=== PATIENT | female | born 1965 | race Caucasian/White ===

== ENCOUNTER → 2022-09-04 12:47 | Outpatient (BNVA) | payer MEDICARE, MEDICAID, SELFPAY | PROVIDERS: PCP Internal Medicine; Visit Provider Physician Assistant | DX: E66.01 Morbid (severe) obesity due to excess calories (principal); E78.5 Hyperlipidemia, unspecified; I10 Essential (primary) hypertension; G40.909 Epilepsy, unspecified, not intractable, without status epilepticus; F41.9 Anxiety disorder, unspecified; Z68.43 Body mass index [BMI] 50.0-59.9, adult; Z98.890 Other specified postprocedural states; Z79.01 Long term (current) use of anticoagulants; Z86.69 Personal history of other diseases of the nervous system and sense organs | CPT/HCPCS: 99202 ==

== ENCOUNTER → 2022-09-26 13:28 | Outpatient (BNVA) | payer MEDICARE, MEDICAID, SELFPAY | PROVIDERS: PCP Internal Medicine; Visit Provider Dietitian, Registered | DX: E66.01 Morbid (severe) obesity due to excess calories (principal); Z68.43 Body mass index [BMI] 50.0-59.9, adult | CPT/HCPCS: 97802 ==

== ENCOUNTER 2022-10-02 11:28 | Outpatient (REF) | payer MEDICARE, MEDICAID, SELFPAY ==
--- NOTE | ~2022-10-02 | XR_ITS ---
EXAMINATION: XR CHEST 2 VIEWS CLINICAL INFORMATION: Morbid obesity. COMPARISON: Chest radiographs dated 07/27/2013. TECHNIQUE: Frontal and lateral views of the chest were obtained. FINDINGS: The heart, great vessels, pulmonary vasculature and mediastinum are normal. The lungs show no focal infiltrate, effusion or pneumothorax. There is no acute osseous abnormality. There is multi-level thoracic spondylosis. XR/XR chest 2V IMPRESSION: No active cardiopulmonary disease.
--- NOTE | 2022-10-02 12:05 | ECG_ITS ---
Test Reason : E66.01 Morbid Obesity Blood Pressure : / mmHG Vent. Rate : 085 BPM Atrial Rate : 085 BPM P-R Int : 160 ms QRS Dur : 114 ms QT Int : 382 ms P-R-T Axes : 070 -45 079 degrees QTc Int : 454 ms Normal sinus rhythm Left anterior fascicular block Moderate voltage criteria for LVH, may be normal variant ( R in aVL , Brian product ) Abnormal ECG When compared with ECG of 25-OCT-2010 11:02, Left anterior fascicular block is now Present Referred By: Lyn Patel Electronically Signed By:Luciano Caicedo
[2022-10-02 12:35] LABS: Basophils Percent Auto 0.4 % (0-2); Eosinophils Absolute Auto 0.2 X10*3/uL (0.0-0.4); Eosinophils Percent Auto 1.8 % (0-4); Hematocrit 39.5 % (37.0-47.0); Imm Gran Abs Auto 0.05 X10*3/uL (0.00-0.03); Imm Gran Pct Auto 0.6 % (0.0-0.4); Lymphocytes Absolute Auto 1.8 X10*3/uL (1.2-4.9); Lymphocytes Percent Auto 19.9 % (20-40); MANUAL DIFF FLAG NO; Mean Corpuscular HGB Conc 30.4 g/dl (31.0-35.0); Mean Corpuscular Hemoglobin 24.8 pg (27.0-33.0); Mean Corpuscular Volume 81.8 fL (80.0-98.0); Mean Platelet Volume 9.1 fL (9.4-12.3); Monocytes Absolute Auto 0.7 X10*3/uL (0.1-1.2); Monocytes Percent Auto 8.2 % (2-11); Neutrophils Absolute Auto 6.2 x10*3/uL (2.0-8.3); Neutrophils Percent Auto 69.1 % (45-73); Platelet Count 347 X10*3/uL (160-400); Red Blood Count 4.83 X10*6/uL (4.20-5.50); Red Cell Distribution Width 18.1 % (11.0-16.0)
[2022-10-02 13:53] LABS: Estimated Average Glucose 151 mg/dL; Hemoglobin A1c % 6.9 %
[2022-10-02 18:08] LABS: Alanine Aminotransferase 13 U/L (0-31); Albumin Level 4.2 g/dL (3.5-5.0); Alkaline Phosphatase 132 U/L (39-117); Anion Gap 15 (12-20); Aspartate Amino Transferase 17 U/L (5-31); Bilirubin Total 0.3 mg/dL (0.0-1.0); Blood Urea Nitrogen 20 mg/dL (9-16); Calcium 9.2 mg/dL (8.4-10.2); Carbon Dioxide 17 mmol/L (22-29); Chloride 109 mmol/L (96-108); Cholesterol 112 mg/dL; Estimated Glomerular Filt Rate 47; Glucose Random 130 mg/dL (60-115); HDL Cholesterol 38 mg/dL; Iron 41 mcg/dL (30-160); LDL Cholesterol Calculated 53 mg/dl; Percent Iron Saturation 10 % (15-50); Sodium 137 mmol/L (135-145); Total Iron Binding Capacity 405 mcg/dL (228-428); Total Protein 8.5 g/dL (6.5-8.0); Triglycerides 109 mg/dL; Unsaturated Iron Binding 364 ug/dL
[2022-10-02 18:25] LABS: Ferritin 23 ng/mL (10-250); Insulin 55 uU/mL (2-29); TSH reflex Free T4 1.59 uIU/mL (0.32-4.0); Vitamin D 25-OH Total 14.2 ng/mL (>30)
[2022-10-02 18:37] LABS: Folate 10.6 ng/mL (> or = 4.0); Vitamin B12 338 pg/mL (200-900)
[2022-10-03 16:44] LABS: Calcium (PTHI) 9.1 mg/dL (8.6-10.4); PTHI 48 pg/mL (16-77)
[2022-10-06 23:54] LABS: Zinc 69 mcg/dL (60-130)
[2022-10-07 16:03] LABS: Vitamin B1 9 nmol/L (8-30)
[2022-10-09 08:43] LABS: Vitamin A 53 mcg/dL (38-98)
== END 2022-10-02 11:29 | disposition home or self-care (01) ==
LOC: HO.LAB 11:28
PROVIDERS: PCP Internal Medicine; Visit Provider Physician Assistant
DX: Z01.818 Encounter for other preprocedural examination (principal); E66.01 Morbid (severe) obesity due to excess calories; I42.9 Cardiomyopathy, unspecified; Z71.3 Dietary counseling and surveillance; Z68.43 Body mass index [BMI] 50.0-59.9, adult
CPT/HCPCS: 36415; 71046; 80053; 80061; 82306; 82607; 82728; 82746; 83013; 83036; 83525; 83540; 83970; 84425; 84443; 84590; 84630; 85025; 86140; 93005; 99211; 99212

== ENCOUNTER 2022-10-02 18:03 | Outpatient (REF) | payer MEDICARE, MEDICAID, SELFPAY ==
[2022-10-03 09:03] LABS: H Pylori Breath Test Positive (Negative)
== END 2022-10-02 18:04 | disposition home or self-care (01) ==
LOC: HO.LNP 18:03
PROVIDERS: Visit Provider Physician Assistant
DX: Z13.89 Encounter for screening for other disorder (principal)
CPT/HCPCS: 83013

== ENCOUNTER → 2022-10-08 14:15 | Outpatient (BNVA) | payer MEDICARE, MEDICAID, SELFPAY | PROVIDERS: PCP Internal Medicine; Visit Provider Counselor Mental Health | DX: F33.9 Major depressive disorder, recurrent, unspecified (principal); F41.1 Generalized anxiety disorder; F50.81 Binge eating disorder; E66.01 Morbid (severe) obesity due to excess calories | CPT/HCPCS: 90791 ==

== ENCOUNTER → 2022-10-20 13:23 | Outpatient (BNVA) | payer MEDICARE, MEDICAID, SELFPAY | PROVIDERS: PCP Internal Medicine; Visit Provider Dietitian, Registered | DX: E66.01 Morbid (severe) obesity due to excess calories (principal); Z71.3 Dietary counseling and surveillance | CPT/HCPCS: 97803 ==

== ENCOUNTER → 2022-10-23 13:25 | Outpatient (BNVA) | payer MEDICARE, MEDICAID, SELFPAY | PROVIDERS: PCP Internal Medicine; Visit Provider Physician Assistant | DX: E66.01 Morbid (severe) obesity due to excess calories (principal); I42.9 Cardiomyopathy, unspecified; Z68.43 Body mass index [BMI] 50.0-59.9, adult | CPT/HCPCS: 99212 ==

== ENCOUNTER → 2022-11-11 15:33 | Outpatient (BNVA) | payer MEDICARE, MEDICAID, SELFPAY | PROVIDERS: PCP Internal Medicine; Visit Provider Counselor Mental Health | DX: F33.9 Major depressive disorder, recurrent, unspecified (principal); F41.1 Generalized anxiety disorder; F50.81 Binge eating disorder; E66.01 Morbid (severe) obesity due to excess calories; Z90.49 Acquired absence of other specified parts of digestive tract | CPT/HCPCS: 90832 ==

== ENCOUNTER → 2022-11-17 13:15 | Outpatient (BNVA) | payer MEDICARE, MEDICAID, SELFPAY | PROVIDERS: PCP Internal Medicine; Visit Provider Physician Assistant | DX: Z01.818 Encounter for other preprocedural examination (principal); E66.01 Morbid (severe) obesity due to excess calories; R73.09 Other abnormal glucose; A04.8 Other specified bacterial intestinal infections; I44.4 Left anterior fascicular block; I42.9 Cardiomyopathy, unspecified; Z68.43 Body mass index [BMI] 50.0-59.9, adult; Z90.49 Acquired absence of other specified parts of digestive tract; Z94.0 Kidney transplant status | CPT/HCPCS: 83013; 99211; 99212 ==

== ENCOUNTER 2022-11-17 16:02 | Outpatient (REF) | payer MEDICARE, MEDICAID, SELFPAY ==
[2022-11-18 15:32] LABS: H Pylori Breath Test Positive (Negative)
== END 2022-11-17 16:03 | disposition home or self-care (01) ==
LOC: HO.LNP 16:02
PROVIDERS: Visit Provider Physician Assistant
DX: Z13.89 Encounter for screening for other disorder (principal)
CPT/HCPCS: 83013

== ENCOUNTER → 2023-03-12 15:21 | Outpatient (BNVA) | payer MEDICARE, MEDICAID, SELFPAY | PROVIDERS: PCP Internal Medicine; Visit Provider Physician Assistant | DX: E66.01 Morbid (severe) obesity due to excess calories (principal); I42.9 Cardiomyopathy, unspecified; I10 Essential (primary) hypertension; E78.5 Hyperlipidemia, unspecified; G40.909 Epilepsy, unspecified, not intractable, without status epilepticus; F50.81 Binge eating disorder; F33.9 Major depressive disorder, recurrent, unspecified; Z68.43 Body mass index [BMI] 50.0-59.9, adult | CPT/HCPCS: 99212 ==

== ENCOUNTER 2023-04-01 16:00 | Outpatient (AMB) | payer MEDICARE, MEDICAID, SELFPAY ==
--- NOTE | 2023-04-01 11:43 | MHC.OFFVISWM ---
Intake VS Expanded 04/01/23 11:54 Height 5 ft 3 in Weight 287 lb BMI 50.8 Intake Visit Reasons: VIDEO F/U SWL Allergies sulfamethoxazole [From BACTRIM] Allergy (Severe, Verified 03/12/23 15:34) HIVES trimethoprim [From BACTRIM] Allergy (Severe, Verified 03/12/23 15:34) HIVES From Pneumovax 23 Allergy (Unknown, Uncoded 06/07/20 18:02) SWELLING TO INJECTION SITE HPI HPI Comments History of Present Illness Details SWL follow up - Pt started our program Aug 2022 at 299?lbs, then stopped and returned in February 2023 to re-establish. Saw cylinder devalver in [place] -due to high total protein in blood - had bone scan done this week and is waiting for results. Meal plan - 10 am - Premier shake 1pm- same shake 5pm - chicken breast or ground turkey with salad/vegetable. use cauliflower rice -not measuring 9pm - bar Exercise - was LS videos 1 mile videos, then fell walking down stairs and hurt her foot and stopped. Pre op work up completed as follows: SWL classes - 04/28 appts? - initial 10/08, will be seen regularly, had appt for 03/17 - did not happen- will reschedule RD appts? -second appt on 10/20, cleared Hpylori - today Labs- vit d defic, Aic 6.9 CXR -normal ECG - Normal sinus rhythm Left anterior fascicular block Moderate voltage criteria for LVH, may be normal variant ( R in aVL, Brian product) Abnormal ECG When compared with ECG of 25-OCT-2010 11:02, Left anterior fascicular block s now Present ULS and UGI - had to?be rescheduled due to car broke? -rescheduled to 12/15, not done - patient needs to reschedule Cards - [facility] Cardiologists, no follow up needed per them ECHO - Sept at [facility] [place]- cardiomyopathy EF 35% Cardiac MRI- December 08. She was told everything was normal Dr Joaquin De La Torre -renal provider - pleased she is preparing for surgery. ? PFSH Surgical History Hx laparoscopic cholecystectomy Hx of kidney transplant Hx of prior ablation treatment Hx of removal of neck cyst Hx of tubal ligation Family History Mother Diabetes Heart problem Father Diabetes Heart problem Liver failure Sister No problems noted. Sister Thyroid condition Daughter Lupus Son No problems noted. Social History Alcohol intake: current Alcohol intake frequency: holidays/special occasions only Patient Tobacco Use Status: Never used Tobacco Assessment & Plan Assessment & Plan (1) Morbid obesity: Code(s): E66.01 - Morbid (severe) obesity due to excess calories Plan: Pt has restarted our program but has not followed through with or radiology appts. Only change to her meal plan is to use 8 forks each of protein and vegetable. Exercise- do LS 1 mile videos 7 days per week - sitting for now until her foot heals. She will reschedule her UGI and ULS appts, We will schedule another appt with Bela for her as well. Juarez is obtaining [facility] Ent Physician note - and I will have Dr Powers review it. Patient is still morbidly obese and is not considered stable at this time. I spent 25 minutes in total speaking with the patient via video conference counseling , reviewing records and charting in patients chart. . Next appt with me in 3 wees. (2) Cardiomyopathy: Comment: cardiac MRI - [facility] [place] December 15 - told normal- NEED result Code(s): I42.9 - Cardiomyopathy, unspecified (3) History of radiofrequency ablation (RFA) procedure for cardiac arrhythmia: Code(s): Z98.890 - Other specified postprocedural states Telehealth Telehealth Location of provider rendering services: practice address Location of patient: address on file Patient Identification confirmed using: Name, : Yes Telehealth method: video Patient verbally consented to treatment: Yes Patient verbally consented to billing insurance company: Yes Patient informed of any privacy concerns related to visit: Yes Coding Level of Care Code Tele Est Pt Level 4 (10689) Diagnoses Morbid obesity E66.01 Cardiomyopathy I42.9 History of radiofrequency ablation (RFA) procedure for cardiac arrhythmia Z98.890
[2023-04-01 11:54] VITALS: BMI 50.8
== END 2023-04-01 16:27 | disposition home or self-care (01) ==
LOC: HO.HBS 16:23
PROVIDERS: PCP Internal Medicine; Visit Provider Physician Assistant
DX: E66.01 Morbid (severe) obesity due to excess calories (principal); Z68.43 Body mass index [BMI] 50.0-59.9, adult; I42.9 Cardiomyopathy, unspecified
CPT/HCPCS: 99214

== ENCOUNTER → 2023-04-01 16:00 | Outpatient (BNVA) | payer MEDICARE, MEDICAID, SELFPAY | PROVIDERS: PCP Internal Medicine; Visit Provider Physician Assistant | DX: E66.01 Morbid (severe) obesity due to excess calories (principal); I42.9 Cardiomyopathy, unspecified; Z68.43 Body mass index [BMI] 50.0-59.9, adult; Z98.890 Other specified postprocedural states; Z90.49 Acquired absence of other specified parts of digestive tract; Z94.0 Kidney transplant status | CPT/HCPCS: Q3014 ==

== ENCOUNTER 2023-11-15 15:27 | Emergency (ER) | payer MEDICARE, MEDICAID, SELFPAY ==
--- NOTE | ~2023-11-15 | CT_ITS ---
EXAMINATION: CT ABDOMEN AND PELVIS WITHOUT CONTRAST CLINICAL INFORMATION: Diffuse abdominal pain, diarrhea COMPARISON: None available. TECHNIQUE: Multidetector volumetric imaging was performed from the superior aspect of the liver through the pubic symphysis. Sagittal and coronal reformatted images were obtained on the technologist's workstation. This CT examination was performed using dose optimization techniques as appropriate, variously including the following: *Automated exposure control *Adjustment of mA and/or kV according to patient size (this includes techniques or standardized protocols for targeted exams where dose is matched to indication/reason for exam; i.e. extremities or head) *Use of iterative reconstruction technique DLP: 933 mGy-cm FINDINGS: Evaluation of solid organs, vascular structures, and bowel wall limited in the absence of intravenous contrast. LUNG BASES: Unremarkable. LIVER AND BILIARY TREE: Unremarkable. GALLBLADDER: Status post cholecystectomy. PANCREAS: Unremarkable. SPLEEN: Unremarkable. ADRENAL GLANDS: Diffuse thickening of the left adrenal gland without discrete nodule. KIDNEYS AND URETERS: Status post left nephrectomy. Right kidney unremarkable. GASTROINTESTINAL TRACT: Mild scattered sigmoid diverticulosis without evidence of acute diverticulitis. Status post appendectomy. VASCULAR: Unremarkable LYMPH NODES: Prominent but nonenlarged perigastric lymph node, nonspecific (series 4, image 268). PERITONEUM: No ascites. BLADDER: Unremarkable. PELVIC VISCERA: Left ovarian simple appearing 5.6 cm cystic lesion (series 4, image 561; series 6, image 64). ABDOMINAL AND PELVIC WALL: Unremarkable. OSSEOUS STRUCTURES: Multifocal ossification of the posterior longitudinal ligament spanning from T11 through L1-2 with resulting in at least mild osseous spinal canal narrowing. Lower lumbar facet arthropathy. CT/CT abdomen pelvis wo IV con IMPRESSION: 1. No acute abnormality of the abdomen or pelvis within the limitations of noncontrast technique. 2. Left ovarian simple appearing 5.6 cm cystic lesion, not adequately characterized. Per best practice guidelines, recommend further evaluation with pelvic ultrasound.
[2023-11-15 15:33] VITALS: BP 123/60; PULSE 58; RESP 20; TEMP 36.9; O2SAT 96; BMI 50.5
--- NOTE | 2023-11-15 15:34 | ED_ITS ---
HPI - Abdominal Pain General Chief Complaint: Abdominal Pain Stated Complaint: stomach bug? Time Seen by Provider: 11/15/23 16:09 Source: patient Mode of arrival: ambulatory Limitations: no limitations History of Present Illness HPI narrative: 58 yo female with PMH of DM, depression, anxiety, seizures, obesity, cardiomyopathy last EF 40%, states she thinks she was on antibiotics in the last month but not completely sure. No travel. Started mounajro last thursday for weight loss. On Thursday developed upper abdominal pain and some mild nausea but then persistent daily diarrhea over 6 episodes a day nonbloody that does not respond to immodium. No fevers reported. She denies sick contacts. Today she tried to go to work but couldn't make it due to the diarrhea. She knows this could be a side effect of the mounjaro. MD elicited complaint: abdominal pain Pertinent past history: none Onset (ago): day(s) (3) Pain Consistency: intermittent Location: epigastric Severity: mild Quality: cramping and aching Radiation: none Migration to: no migration Exacerbating factors: eating Relieving factors: nothing Context: recent antibiotic use and other (new mounjaro) Associated symptoms: nausea and diarrhea Treatments prior to arrival: other Related Data Home Medications Medication Instructions Recorded Confirmed acetaminophen 325 mg capsule 650 mg PO Q6H PRN 08/25/22 (Tylenol) albuterol sulfate 2.5 mg/0.5 mL 5 mg inhalation Q6H 08/25/22 solution for nebulization albuterol sulfate 90 mcg/actuation 2 puff inhalation Q6H PRN 08/25/22 aerosol inhaler atorvastatin 40 mg tablet 40 mg PO QPM 08/25/22 lamotrigine 100 mg tablet 300 mg PO BID 08/25/22 (Lamictal) levetiracetam 500 mg tablet 500 mg PO BID 08/25/22 (Keppra) lorazepam 1 mg tablet 1 mg PO BEDTIME PRN 08/25/22 topiramate 50 mg tablet (Topamax) 150 mg PO BID 08/25/22 ferrous sulfate 325 mg (65 mg 325 mg PO DAILY 10/02/22 iron) tablet carvedilol 25 mg tablet 25 mg PO BID 10/23/22 clonazepam 1 mg tablet 0.5 mg PO DAILY 03/12/23 Previous Rx's Medication Instructions Recorded cholecalciferol (vitamin D3) 50 50 mcg PO DAILY #60 caps 10/06/22 mcg (2,000 unit) capsule Allergies Allergy/AdvReac Type Severity Reaction Status Date / Time sulfamethoxazole Allergy Severe HIVES Verified 03/12/23 15:34 [From BACTRIM] trimethoprim [From BACTRIM] Allergy Severe HIVES Verified 03/12/23 15:34 From Pneumovax 23 Allergy Unknown SWELLING Uncoded 06/07/20 18:02 TO INJECTION SITE Review of Systems Review of Systems Constitutional : No Weight loss, No Fever, No Chills ENT/Mouth : No sore throat, No Rhinorrhea Eyes: No Swelling, No Redness Cardiovascular : No Chest Pain, No SOB, NoEdema Respiratory : No Cough, No Sputum, No Wheezing Gastrointestinal : Positive Nausea, no Vomiting, positive Diarrhea, positive abdominal Pain, No Hematochezia, No Melena Genitourinary : No Dysuria, No Urinary Frequency, No Hematuria, No Urgency Musculoskeletal : No joint pain, No Myalgias, No Joint Swelling Skin : No Skin Lesions, No rash Neuro : No Weakness, No Numbness, No Dizziness, No Headache Psych : No Anxiety/Panic, No Depression Heme/Lymph: No Bruising, No Lymphadenopathy Endocrine : No Polyuria, No Polydipsia All other systems reviewed and are negative. [facility] Past Medical History Attestation statement: The following information was validated with the patient. Source: old records reviewed Medical History (Updated 11/15/23 @ 17:54 by Sneha Velázquez DO) YUNIER (generalized anxiety disorder) Cardiomyopathy Anxiety Seizure disorder HTN (hypertension), benign Hyperlipidemia Morbid obesity Surgical History (Updated 11/15/23 @ 16:49 by Sneha Velázquez DO) Hx of removal of neck cyst Hx of prior ablation treatment Hx laparoscopic cholecystectomy Hx of tubal ligation Hx of kidney transplant Family History Family History Mother Diabetes Heart problem Father Diabetes Heart problem Liver failure Sister No problems noted. Sister Thyroid condition Daughter Lupus Son No problems noted. Social History Social History Alcohol intake: current Alcohol intake frequency: holidays/special occasions only Patient Tobacco Use Status: Never used Tobacco Smoked in Last 30 Days: No Use of substances other than those prescribed or required for medical reasons: No Advance Directives: No Advance Directives Information Provided: No Physical Exam ED Vital Signs: Vital Signs - 24 hr 11/15/23 15:33 11/15/23 18:07 Temperature 98.4 F 98.0 F Pulse Rate 58 57 Respiratory Rate 20 16 Blood Pressure 123/60 100/53 L Pulse Oximetry 96 94 Oxygen Delivery Method Room Air Room Air BMI result Body Mass Index 50.5 Appearance: Alert. Oriented X3. No acute distress. Eyes: Pupils equal, round and reactive to light. ENT: Pharynx normal. Neck: Normal inspection. Neck supple. CVS: Normal heart rate and rhythm. Pulses normal. Respiratory: No respiratory distress. Breath sounds normal. Abdomen: Soft and moderate ttp in epigastric area no rebound or guarding Skin: Skin warm and dry. Normal skin color. Normal skin turgor. Extremities: No lower extremity edema. Neuro: Oriented X 3. No motor deficit. No sensory deficit. Course Course Course Narrative: This is an RME: Additional HPI, ROS, PE not included below will be deferred to primary provider. Patient is a 58-year-old female who presents emergency department for evaluation, reports 2 days with epigastric pain, watery diarrhea, nausea but no vomiting, weakness. Diarrhea does not relieve with Imodium. She does admit that her sister was recently ill with similar symptoms, additionally 5 days ago she began taking Mounjaro. Plan: Labs, viral testing, U/A Medical Decision Making Medical Decision Making [facility] Narrative: 58 yo female with PMH of DM, depression, anxiety, seizures, obesity, cardiomyopathy last EF 40%, here with complaint of 3 days of nausea and epigastric pain with diarrhea > 6 days was on amoxicillin in september cannot remember why no travel or known sick contacts. At this time she did start Mounjaro and this could be a side effect. Will obtain labs, CT scan for colitis/diverticulitis, hydrate gently given cardiomyopathy she appears dry clinically. Give zofran and morphine for symptom relief and obtain stool studies. Differential Diagnosis Differential Diagnoses: The differential diagnosis associated with the presentation includes colitis, diverticulitis, cdiff, viral syndrome, medication adverse event Admission/Observation Consideration of admission/observation: Escalation of care including admission/observation considered feels better tolerating PO cannot provide sample will try with PCP tomorrow Lab Data [facility] Lab Attestation statement: I reviewed the patient's lab results. 11/15/23 16:16 11/15/23 16:16 Labs: Lab Results 11/15/23 11/15/23 11/15/23 Range/Units 15:50 16:16 17:47 WBC 13.0 H (4.8-10.8) X10*3/uL RBC 4.16 L (4.20-5.50) X10*6/uL Hgb 12.3 (12.0-16.0) g/dl Hct 39.4 (37.0-47.0) % MCV 94.7 (80.0-98.0) fL MCH 29.6 (27.0-33.0) pg MCHC 31.2 (31.0-35.0) g/dl RDW 14.1 (11.0-16.0) % Plt Count 279 (160-400) X10*3/uL MPV 9.0 L (9.4-12.3) fL Immature Gran % (Auto) 0.4 (0.0-0.4) % Neut % (Auto) 76.3 H (45-73) % Lymph % (Auto) 15.1 L (20-40) % Posey % (Auto) 6.5 (2-11) % Eos % (Auto) 1.5 (0-4) % Baso % (Auto) 0.2 (0-2) % Lymph # (Auto) 2.0 (1.2-4.9) X10*3/uL Posey # (Auto) 0.9 (0.1-1.2) X10*3/uL Eos # (Auto) 0.2 (0.0-0.4) X10*3/uL Baso # (Auto) 0.0 (0.0-0.2) X10*3/uL Abs Immat Gran (auto) 0.05 H (0.00-0.03) X10*3/uL Absolute Neuts (auto) 9.9 H (2.0-8.3) x10*3/uL Absolute Nucleated RBC 0.000 (0.0-0.012) X10*3/uL Nucleated RBC % (auto) 0.0 (0.0-0.2) /100WBC Sodium 139 (135-145) mmol/L Potassium 3.9 (3.3-5.1) mmol/L Chloride 114 H (96-108) mmol/L Carbon Dioxide 17 L (22-29) mmol/L Anion Gap 12 (12-20) BUN 15 (9-16) mg/dL Creatinine 1.23 (0.5-1.4) mg/dL Estim Creat Clear Calc 66.1 Estimated GFR 45 Random Glucose 102 (60-115) mg/dL Calcium 9.2 (8.4-10.2) mg/dL Magnesium 2.0 (1.6-2.6) mg/dL Total Bilirubin 0.4 (0.0-1.0) mg/dL AST 14 (5-31) U/L ALT 14 (0-31) U/L Alkaline Phosphatase 128 H (39-117) U/L Total Protein 8.6 H (6.5-8.0) g/dL Albumin 3.9 (3.5-5.0) g/dL Lipase 10 (8-78) U/L Urine Color Dark Yellow Urine Appearance Clear Urine pH 5.5 (5.0-9.0) Ur Specific [place] >= 1.030 H (1.005-1.025) Urine Protein Trace (Neg-Trace) mg/dL Urine Glucose (UA) Negative (Negative) mg/dL Urine Ketones Trace (Negative) mg/dL Urine Blood Negative (Negative) Urine Nitrite Negative (Negative) Ur Leukocyte Esterase Negative (Negative) Influenza Type A (PCR) NEGATIVE (Negative) Influenza Type B (PCR) NEGATIVE (Negative) RSV RNA Qual (PCR) NEGATIVE (Negative) SARS-CoV-2 RNA (RT-PCR) NEGATIVE (Negative) Independent Interpretation I performed an independent interpretation of an: CT Scan (no colitis) Radiology Impression Discussion of test interpretation with radiology: I have reviewed the radiologist's reading. Independent Historian Clinical information obtained from an independent historian. History obtained from or confirmed by: Spouse External Record Review External record reviewed: Inpatient record, Office record, Prior outpatient labs and Prior outpatient radiology Prescription Management I considered prescription management with: Other Medications Administered Discontinued Medications Generic Name Dose Route Start Last Admin Trade Name Freq PRN Reason Stop Dose Admin Sodium Chloride 1,000 mls @ 999 mls/hr 11/15/23 16:30 11/15/23 17:29 Ns IV 11/15/23 17:30 Infused .Q1H1M EUGENIO Infusion Sodium Chloride 500 mls @ 500 mls/hr 11/15/23 17:00 11/15/23 17:02 Ns IV 11/15/23 17:59 Not Given .Q1H EUGENIO Morphine Sulfate 4 mg 11/15/23 16:18 11/15/23 16:44 Morphine Sulfate 4 Mg/Ml Cartridge IVPUSH 11/15/23 16:19 4 mg ONCE ONE Administration Protocol Ondansetron HCl 4 mg 11/15/23 16:18 11/15/23 16:41 Ondansetron Hcl 4 Mg/2 Ml Vial IVPUSH 11/15/23 16:19 4 mg ONCE ONE Administration Discharge Plan Discharge Clinical Impression: Acute dehydration Diarrhea Qualifiers: Diarrhea type: unspecified type Qualified Code(s): R19.7 - Diarrhea, unspecified Patient Disposition: Home, Self-Care Instructions: Dehydration (ED), Acute Diarrhea (ED) Additional Instructions: return for fevers, bloody stools, worsening symptoms, inability to eat or drink. bring a stool sample to your doctor tomorrow please call [employer] sauce toast and yogurt stay hydrated CT/CT abdomen pelvis wo IV con IMPRESSION: 1. No acute abnormality of the abdomen or pelvis within the limitations of noncontrast technique. 2. Left ovarian simple appearing 5.6 cm cystic lesion, not adequately characterized. Per best practice guidelines, recommend further evaluation with pelvic ultrasound. YOUR DOCTOR WILL NEED TO ORDER THIS FOR FURTHER WORKUP Prescriptions: No Action cholecalciferol (vitamin D3) 50 mcg (2,000 unit) capsule 50 mcg PO DAILY Qty: 60 5RF ferrous sulfate 325 mg (65 mg iron) tablet 325 mg PO DAILY acetaminophen [Tylenol] 325 mg capsule 650 mg PO Q6H PRN levetiracetam [Keppra] 500 mg tablet 500 mg PO BID lamotrigine [Lamictal] 100 mg tablet 300 mg PO BID lorazepam 1 mg tablet 1 mg PO BEDTIME PRN topiramate [Topamax] 50 mg tablet 150 mg PO BID atorvastatin 40 mg tablet 40 mg PO QPM albuterol sulfate 90 mcg/actuation HFA aerosol inhaler 2 puff inhalation Q6H PRN albuterol sulfate 2.5 mg/0.5 mL solution for nebulization 5 mg inhalation Q6H clonazepam 1 mg tablet 0.5 mg PO DAILY carvedilol 25 mg tablet 25 mg PO BID Stand Alone Forms: Work/School Release
[2023-11-15 16:20] LABS: MANUAL DIFF FLAG NO
[2023-11-15 16:21] LABS: Basophils Percent Auto 0.2 % (0-2); Eosinophils Absolute Auto 0.2 X10*3/uL (0.0-0.4); Eosinophils Percent Auto 1.5 % (0-4); Hematocrit 39.4 % (37.0-47.0); Hemoglobin 12.3 g/dl (12.0-16.0); Imm Gran Abs Auto 0.05 X10*3/uL (0.00-0.03); Imm Gran Pct Auto 0.4 % (0.0-0.4); Lymphocytes Percent Auto 15.1 % (20-40); Mean Corpuscular HGB Conc 31.2 g/dl (31.0-35.0); Mean Corpuscular Hemoglobin 29.6 pg (27.0-33.0); Mean Corpuscular Volume 94.7 fL (80.0-98.0); Monocytes Absolute Auto 0.9 X10*3/uL (0.1-1.2); Monocytes Percent Auto 6.5 % (2-11); Neutrophils Absolute Auto 9.9 x10*3/uL (2.0-8.3); Neutrophils Percent Auto 76.3 % (45-73); Platelet Count 279 X10*3/uL (160-400); Red Blood Count 4.16 X10*6/uL (4.20-5.50); Red Cell Distribution Width 14.1 % (11.0-16.0)
[2023-11-15 16:34] LABS: Alanine Aminotransferase 14 U/L (0-31); Albumin Level 3.9 g/dL (3.5-5.0); Alkaline Phosphatase 128 U/L (39-117); Anion Gap 12 (12-20); Aspartate Amino Transferase 14 U/L (5-31); Bilirubin Total 0.4 mg/dL (0.0-1.0); Blood Urea Nitrogen 15 mg/dL (9-16); Calcium 9.2 mg/dL (8.4-10.2); Carbon Dioxide 17 mmol/L (22-29); Chloride 114 mmol/L (96-108); Creatinine Clr Calc Pharmacy 66.1; Estimated Glomerular Filt Rate 45; Glucose Random 102 mg/dL (60-115); Lipase 10 U/L (8-78); Potassium 3.9 mmol/L (3.3-5.1); Sodium 139 mmol/L (135-145); Total Protein 8.6 g/dL (6.5-8.0)
[2023-11-15] MEDS: 0.9 % Sodium Chloride 1,000 ML 999 ML IV (16:38)
[2023-11-15] MEDS: ondansetron HCL 4 MG/2 ML VIAL IVPUSH (16:41)
[2023-11-15] MEDS: Morphine Sulfate 4 MG/ML CARTRIDGE IVPUSH (16:44)
[2023-11-15 16:45] LABS: Influenza A PCR NEGATIVE (Negative); Influenza B PCR NEGATIVE (Negative); Resp Syncy Virus RNA Qual PCR NEGATIVE (Negative); SARS COV2 PCR INHOUSE NEGATIVE (Negative)
--- NOTE | 2023-11-15 16:55 | PC.NURSE ---
pt difficult stick. labs obtained and 22G IV placed to left hand. pt notified about needing UA and stool sample. pt sitting quietly at side of stretcher in no apparent distress. rr even/unlabored. call tobar within reach. plan of care ongoing.
[2023-11-15 17:54] LABS: Appearance Urine Clear; Color Urine Dark Yellow; Glucose Urine UA Negative (Negative); Leukocyte Esterase Urine Negative (Negative); Nitrite Urine Negative (Negative); PH 5.5 (5.0-9.0); Specific Gravity - Urine >= 1.030 (1.005-1.025); Urine Blood Negative (Negative); Urine Ketones Trace mg/dL (Negative); Urine Protein Trace mg/dL (Neg-Trace)
[2023-11-15 18:07] VITALS: BP 100/53; PULSE 57; RESP 16; TEMP 36.7; O2SAT 94
--- NOTE | 2023-11-15 18:08 | PC.NURSE ---
BP soft, 100/53. pt a&o x4, speaking in full complete sentences. MD chris aware.
--- NOTE | 2023-11-15 19:14 | PC.NURSE ---
care assumed of patient at this time; pt resting comfortably in stretcher. no apparent distress noted. reminded that she still needs to provide a stool sample. she is aware. will continue to monitor.
== END 2023-11-15 19:52 | disposition home or self-care (01) ==
PROVIDERS: Nurse Practitioner Family; Emergency Provider Emergency Medicine; PCP Internal Medicine
DX: E86.0 Dehydration (principal); R10.10 Upper abdominal pain, unspecified; R11.0 Nausea; R10.13 Epigastric pain; R19.7 Diarrhea, unspecified; Z11.52 Encounter for screening for COVID-19; Z20.822 Contact with and (suspected) exposure to COVID-19; Z79.899 Other long term (current) drug therapy
CPT/HCPCS: 0241U; 74176; 80053; 81003; 83690; 83735; 85025; 96361; 96374; 96375; 99284; J2270; J2405

== ENCOUNTER 2024-06-29 23:13 | Emergency (ER) | payer MEDICARE, MEDICAID, SELFPAY ==
--- NOTE | ~2024-06-29 | XR_ITS ---
EXAMINATION: XR SACRUM AND COCCYX CLINICAL INFORMATION: Pain. COMPARISON: None available. TECHNIQUE: 2 views of the sacrum and 2 views of the coccyx were obtained. FINDINGS: No acute fracture or dislocation. Tiny bilateral sacroiliac marginal osteophytes. No joint space narrowing. No osseous erosion. Bilateral hip marginal osteophytes. No concerning lytic or blastic osseous lesion. No evidence of femoral head avascular necrosis. XR/XR sacrum coccyx min 2V IMPRESSION: 1. Mild bilateral hip osteoarthritis. 2. Mild bilateral sacroiliac osteoarthritis. Electronically signed by: Jono Varma MD 06/30/2024 09:54 AM EDT
--- NOTE | ~2024-06-29 | XR_ITS ---
EXAMINATION: XR LUMBOSACRAL SPINE CLINICAL INFORMATION: Pain. COMPARISON: CT abdomen/pelvis dated 11/15/2023. TECHNIQUE: Three views of the lumbosacral spine. FINDINGS: Normal vertebral body alignment. The lumbar lordosis is maintained. No acute fracture or subluxation. No loss of vertebral body height. Mild multilevel loss of intervertebral disc height with endplate osteophytes, most prominent at L5-S1. Anterior osteophytes are most prominent at L1-L2. Multilevel bilateral facet arthropathy. No concerning lytic or blastic osseous lesion. Left retroperitoneal surgical clips. XR/XR lumbar spine 2-3V IMPRESSION: Multilevel degenerative disc disease, most prominent at L5-S1. Multilevel bilateral facet arthropathy. Electronically signed by: Jono Varma MD 06/30/2024 09:53 AM EDT
[2024-06-30 00:26] VITALS: BP 187/78; PULSE 80; RESP 18; TEMP 36.9; O2SAT 95; BMI 50.6
[2024-06-30 03:25] VITALS: BP 142/84; PULSE 65; RESP 18; TEMP 36.7; O2SAT 96
--- NOTE | 2024-06-30 03:25 | PC.NURSE ---
pt came from home, ambulated from waiting room. pt a&ox4, respirations even and unlabored, vss. pt reports left lower back pain that radiates to left leg starting yesterday. pt reports Tylenol, vicks rub and lidocaine patch does not provide pain relief. pt neurological function intact.
--- NOTE | 2024-06-30 03:29 | MHC.EDTECH ---
Patient came from the ,patient changed into hospital attire,patient ambulated to the bathroom with a slow/steady gait,urine sample obtained sent to lab,vitals taken,family at bedside call tobar in reach
[2024-06-30 03:51] LABS: Appearance Urine Clear; Color Urine Yellow; Glucose Urine UA Negative (Negative); Leukocyte Esterase Urine Negative (Negative); Nitrite Urine Negative (Negative); PH 5.5 (5.0-9.0); Specific Gravity - Urine >= 1.030 (1.005-1.025); Urine Blood Negative (Negative); Urine Ketones Negative (Negative); Urine Protein Negative (Neg-Trace)
[2024-06-30 03:56] LABS: Bacteria Urine None Seen (None Seen); Hyaline Casts Urine 0-2 /LPF (0-2); RBC Urine 0-2 /HPF (0-2); Squamous Epithelial Cell Urine 0-2 /HPF (0-2); WBC Urine 0-5 /HPF (0-5)
--- NOTE | 2024-06-30 05:06 | MHC.EDTECH ---
Hourly rounds completed,patient is very tearful due to her back pain,this tech placed a hot pack on her left lower back,patient is waiting to be seen by provider,RN was made aware,family at bedside call tobar in reach
--- NOTE | 2024-06-30 06:00 | PC.NURSE ---
pt tearful and crying d/t pain, provider aware and discharge rn karen aware.
[2024-06-30 06:03] VITALS: BP 154/76; PULSE 71; RESP 20; TEMP 36.7; O2SAT 97
--- NOTE | 2024-06-30 06:43 | ED.BACK ---
HPI - Back Pain/Injury General Chief Complaint: Back Pain/Injury Stated Complaint: Severe back pain Time Seen by Provider: 06/30/24 06:42 Source: patient and RN notes reviewed Mode of arrival: ambulatory Limitations: no limitations History of Present Illness ED Provider: Jordyn Rodney PA-C HPI Narrative: This is a 59-year-old female, PMH of DM, depression, anxiety, seizures, obesity, cardiomyopathy last EF 40%, atrial fibrillation no longer anticoagulated as of 2 weeks ago secondary to chronic severe anemia, who presents emergency department with complaints of left hip, left lower back pain since yesterday. Patient states that she gradually developed left low back and left hip pain starting yesterday. Patient denies history of similar symptoms in the past. She states that she has had no recent trauma, injury, heavy lifting or falls. She states that the pain is constant and radiates down her left leg. She denies any urinary or bowel retention or incontinence. No fevers, chills, chest pain, shortness breath, abdominal pain, nausea, vomiting or diarrhea. She has been using [id number] pain patches as well as Tylenol which has provided her with some relief. Pain worsens with positional changes. No saddle anesthesia. MD elicited complaint: back pain Timing: constant Severity: moderate Quality: aching Location: lumbar spine Radiation: left upper leg Exacerbating factors: none Relieving factors: none Associated symptoms: denies other symptoms Related Data Home Medications ?Medication ?Instructions ?Recorded ?Confirmed acetaminophen 325 mg capsule 650 mg PO Q6H PRN 08/25/22 (Tylenol) albuterol sulfate 2.5 mg/0.5 mL 5 mg inhalation Q6H 08/25/22 solution for nebulization albuterol sulfate 90 mcg/actuation 2 puff inhalation Q6H PRN 08/25/22 aerosol inhaler atorvastatin 40 mg tablet 40 mg PO QPM 08/25/22 lamotrigine 100 mg tablet 300 mg PO BID 08/25/22 (Lamictal) levetiracetam 500 mg tablet 500 mg PO BID 08/25/22 (Keppra) lorazepam 1 mg tablet 1 mg PO BEDTIME PRN 08/25/22 topiramate 50 mg tablet (Topamax) 150 mg PO BID 08/25/22 ferrous sulfate 325 mg (65 mg 325 mg PO DAILY 10/02/22 iron) tablet carvedilol 25 mg tablet 25 mg PO BID 10/23/22 clonazepam 1 mg tablet 0.5 mg PO DAILY 03/12/23 Previous Rx's ?Medication ?Instructions ?Recorded cholecalciferol (vitamin D3) 50 50 mcg PO DAILY #60 caps 10/06/22 mcg (2,000 unit) capsule lidocaine 5 % topical patch 1 patch topical DAILY #30 ea 06/30/24 (Lidoderm) morphine 15 mg immediate release 15 mg PO Q6H PRN pain #7 tabs 06/30/24 tablet Allergies Allergy/AdvReac Type Severity Reaction Status Date / Time sulfamethoxazole Allergy Severe HIVES Verified 06/30/24 00:29 [From BACTRIM] trimethoprim [From BACTRIM] Allergy Severe HIVES Verified 06/30/24 00:29 From Pneumovax 23 Allergy Unknown SWELLING Uncoded 06/07/20 18:02 TO INJECTION SITE Review of Systems Review of Systems: Yes all other systems are reviewed and are negative Constitutional: Constitutional: Reports as per [facility] Past Medical History Attestation statement: The following information was validated with the patient. Medical History YUNIER (generalized anxiety disorder) Cardiomyopathy Anxiety Seizure disorder HTN (hypertension), benign Hyperlipidemia Morbid obesity Surgical History Hx of removal of neck cyst Hx of prior ablation treatment Hx laparoscopic cholecystectomy Hx of tubal ligation Hx of kidney transplant Family History Family History Mother Diabetes Heart problem Father Diabetes Heart problem Liver failure Sister No problems noted. Sister Thyroid condition Daughter Lupus Son No problems noted. Social History Social History Alcohol intake: current Alcohol intake frequency: holidays/special occasions only Patient Tobacco Use Status: Never used Tobacco Smoked in Last 30 Days: No Use of substances other than those prescribed or required for medical reasons: No Advance Directives: No Advance Directives Information Provided: Yes Patient : No Physical Exam Vital Signs: Vital Signs: Last Vital Signs Temp 98.1 F 06/30/24 11:18 Pulse 59 06/30/24 11:18 Resp 18 06/30/24 11:18 BP 112/43 L 06/30/24 11:18 Pulse Ox 95 06/30/24 11:18 O2 Del Method Room Air 06/30/24 10:04 BMI result Body Mass Index 50.6 Const: General: cooperative, comfortable and no acute distress Orientation/consciousness: patient oriented x3 Limitations: no limitations HEENT: Head: Yes normal to inspection, Yes normocephalic and Yes atraumatic Ears: hearing grossly normal bilaterally General nose exam: Normal external nose present Face and sinus: Yes normal facial exam Mouth: Normal oral and palatal mucosa present, oropharynx normal and moist mucous membranes Throat: Yes posterior oropharynx normal Eyes: General: appearance normal, both eyes and all related structures Eyelids: Yes eyelids normal Conjunctivae: conjunctivae normal Sclerae: sclerae normal Pupils: Equal, round and reactive pupils present EOM: EOMs intact bilaterally Neck: Neck: Yes normal visual inspection, Yes full ROM and Yes no lymphadenopathy Lymphatic: no lymphadenopathy noted Chest: Chest palpation & inspection: normal inspection of the chest Resp: Effort & Inspection: normal respiratory effort and able to speak in complete sentences Auscultation: clear to auscultation bilaterally, no crackles, no rales, no rhonchi and no wheezes Cardio: Rate: regular rate Rhythm: regular rhythm Heart sounds: S1 normal heart sound present and S2 normal heart sound present GI: Other: Abdomen is soft, nontender, nondistended. Inspection: Yes normal to inspection : General: Yes no CVA tenderness Back/Spine/Pelvis: Other: No midline spine tenderness, patient has tenderness palpation along the left SI joint and left hip. Back: no CVA tenderness Skin: General skin exam: no rashes or lesions noted Trauma: no lacerations or abrasions Wounds: no wounds Neuro: General: patient oriented x3 and moves all extremities Cranial nerves: Yes Equal, round and reactive pupils present Extrem: General: Yes normal to inspection Right upper extremity: normal to inspection Left upper extremity: normal to inspection Right lower extremity: normal to inspection Left lower extremity: normal to inspection Course Reevaluation(s) Reevaluation #1: X-ray returns, revealing multilevel degenerative disc disease most prominent at L5-S1, with multilevel bilateral facet arthropathy. Time: 09:59 Reevaluation #2: Patient re-evaluated, feeling much better. Will discharge with close follow-up with PCP. Patient given strict return precautions. Patient understands and agrees with plan. Patient stable for discharge. Time: 10:58 Medications Administered Discontinued Medications Generic Name Dose Route Start Last Admin Trade Name Mira PRN Reason Stop Dose Admin Lidocaine 1 patch 06/30/24 10:05 06/30/24 10:12 Lidocaine 4 % Patch Adh..Patch TRANSDERMA 06/30/24 10:06 1 patch ONCE ONE Administration Protocol Morphine Sulfate 4 mg 06/30/24 06:54 06/30/24 07:48 Morphine Sulfate 4 Mg/Ml Cartridge IVPUSH 06/30/24 06:55 4 mg ONCE ONE Administration Protocol Morphine Sulfate 4 mg 06/30/24 09:58 06/30/24 10:12 Morphine Sulfate 4 Mg/Ml Cartridge IVPUSH 06/30/24 09:59 4 mg ONCE ONE Administration Protocol Medical Decision Making Medical Decision Making [facility] Narrative: This is a 59-year-old female who presents emergency department with complaints of left low back pain and left hip pain. This is atraumatic. On arrival, blood pressure elevated at 187/78, this improved during my assessment which was approximately 7 hours later. She is nontoxic appearing, speaking full sentences, appears to be slightly uncomfortable secondary to left low back pain. Patient has tenderness palpation along the left SI joint. This patient presents with back pain most consistent with lumbar radiculopathy. Differential diagnoses includes lumbago versus musculoskeletal spasm / strain versus sciatica. No back pain red flags on history or physical. Presentation not consistent with malignancy (lack of history of malignancy, lack of B symptoms), fracture (no trauma, no bony tenderness to palpation), cauda equina (no bowel or urinary incontinence/retention, no saddle anesthesia, no distal weakness), pyelonephritis (afebrile, no CVAT, no urinary symptoms). Differential Diagnosis Differential Diagnoses: The differential diagnosis associated with the presentation includes Admission/Observation Consideration of admission/observation: Escalation of care including admission/observation considered Lab Data [facility] Lab Attestation statement: I reviewed the patient's lab results. Slight leukocytosis at 12.3, chemistry revealing no acute electrolyte derangement. Urine does not appear to be infected. 06/30/24 07:40 06/30/24 08:42 Labs: Lab Results 06/30/24 06/30/24 06/30/24 Range/Units 03:27 07:40 08:42 WBC 12.3 H (4.8-10.8) X10*3/uL RBC 4.50 (4.20-5.50) X10*6/uL Hgb 12.4 (12.0-16.0) g/dl Hct 40.2 (37.0-47.0) % MCV 89.3 (80.0-98.0) fL MCH 27.6 (27.0-33.0) pg MCHC 30.8 L (31.0-35.0) g/dl RDW 15.8 (11.0-16.0) % Plt Count 287 (160-400) X10*3/uL MPV 9.1 L (9.4-12.3) fL Immature Gran % (Auto) 0.6 H (0.0-0.4) % Neut % (Auto) 72.1 (45-73) % Lymph % (Auto) 18.0 L (20-40) % [place] % (Auto) 7.7 (2-11) % Eos % (Auto) 1.3 (0-4) % Baso % (Auto) 0.3 (0-2) % Lymph # (Auto) 2.2 (1.2-4.9) X10*3/uL [place] # (Auto) 1.0 (0.1-1.2) X10*3/uL Eos # (Auto) 0.2 (0.0-0.4) X10*3/uL Baso # (Auto) 0.0 (0.0-0.2) X10*3/uL Abs Immat Gran (auto) 0.08 H (0.00-0.03) X10*3/uL Absolute Neuts (auto) 8.9 H (2.0-8.3) x10*3/uL Absolute Nucleated RBC 0.000 (0.0-0.012) X10*3/uL Nucleated RBC % (auto) 0.0 (0.0-0.2) /100WBC Sodium 138 (135-145) mmol/L Potassium 4.2 (3.3-5.1) mmol/L Chloride 109 H (96-108) mmol/L Carbon Dioxide 21 L (22-29) mmol/L Anion Gap 12 (12-20) BUN 21 H (9-16) mg/dL Creatinine 1.29 (0.5-1.4) mg/dL Estim Creat Clear Calc 62.4 Estimated GFR 42 Random Glucose 140 H (60-115) mg/dL Calcium 9.3 (8.4-10.2) mg/dL Total Bilirubin 0.3 (0.0-1.0) mg/dL AST 15 (5-31) U/L ALT 15 (0-31) U/L Alkaline Phosphatase 148 H (39-117) U/L Total Protein 8.6 H (6.5-8.0) g/dL Albumin 3.9 (3.5-5.0) g/dL Urine Color Yellow Urine Appearance Clear Urine pH 5.5 (5.0-9.0) Ur Specific [place] >= 1.030 H (1.005-1.025) Urine Protein Negative (Neg-Trace) mg/dL Urine Glucose (UA) Negative (Negative) mg/dL Urine Ketones Negative (Negative) mg/dL Urine Blood Negative (Negative) Urine Nitrite Negative (Negative) Ur Leukocyte Esterase Negative (Negative) Urine RBC 0-2 (0-2) /HPF Urine WBC 0-5 (0-5) /HPF Ur Squamous Epith Cells 0-2 (0-2) /HPF Urine Bacteria None Seen (None Seen) Hyaline Casts 0-2 (0-2) /LPF Radiology Impression Discussion of test interpretation with radiology: I have reviewed the radiologist's reading. Radiologist Impression: XR/XR lumbar spine 2-3V IMPRESSION: Multilevel degenerative disc disease, most prominent at L5-S1. Multilevel bilateral facet arthropathy. Electronically signed by: Jono Varma MD 06/30/2024 09:53 AM EDT RP Dictated By: Jono Varma MD XR/XR sacrum coccyx min 2V IMPRESSION: 1. Mild bilateral hip osteoarthritis. 2. Mild bilateral sacroiliac osteoarthritis. Electronically signed by: Jono Varma MD 06/30/2024 09:54 AM EDT RP Workstation: [id number] Dictated By: Jono Varma MD Discharge Plan Discharge Clinical Impression: Degenerative disc disease, lumbar, Osteoarthritis Patient Disposition: Home, Self-Care Instructions: Osteoarthritis (ED), Acute Low Back Pain (ED), Back Pain (ED) Additional Instructions: You were seen in the emergency department for back pain. Your x-rays reveal evidence of degenerative disc disease as well as osteoarthritis. Your labs are reassuring. Please take prescribed medications as well as use Lidoderm patches as prescribed. You may take morphine for severe pain only, please be advised that this can cause drowsiness, do not drink alcohol or drive while taking this medication. Please follow-up with your primary care physician regarding this visit. Call today to make an appointment. If any new or worsening symptoms occur including but not limited to chest pain, shortness of breath, severe abdominal pain, please seek emergent care. Prescriptions: New morphine 15 mg tablet 15 mg PO Q6H PRN (Reason: pain) Qty: 7 0RF Rx Instructions: Partial Fill upon patient request. lidocaine [Lidoderm] 5 % adhesive patch,medicated 1 patch topical DAILY Qty: 30 0RF Rx Instructions: leave on most painful area for up to 12 hrs No Action cholecalciferol (vitamin D3) 50 mcg (2,000 unit) capsule 50 mcg PO DAILY Qty: 60 5RF ferrous sulfate 325 mg (65 mg iron) tablet 325 mg PO DAILY acetaminophen [Tylenol] 325 mg capsule 650 mg PO Q6H PRN levetiracetam [Keppra] 500 mg tablet 500 mg PO BID lamotrigine [Lamictal] 100 mg tablet 300 mg PO BID lorazepam 1 mg tablet 1 mg PO BEDTIME PRN topiramate [Topamax] 50 mg tablet 150 mg PO BID atorvastatin 40 mg tablet 40 mg PO QPM albuterol sulfate 90 mcg/actuation HFA aerosol inhaler 2 puff inhalation Q6H PRN albuterol sulfate 2.5 mg/0.5 mL solution for nebulization 5 mg inhalation Q6H clonazepam 1 mg tablet 0.5 mg PO DAILY carvedilol 25 mg tablet 25 mg PO BID Interventions: ED Discharge Assessment Last Done: 06/30/24 11:18 Discharge Date/Time: 06/30/24 11:19 Print Language: Kiswahili
[2024-06-30 07:43] LABS: MANUAL DIFF FLAG NO
[2024-06-30 07:46] LABS: Basophils Percent Auto 0.3 % (0-2); Eosinophils Absolute Auto 0.2 X10*3/uL (0.0-0.4); Eosinophils Percent Auto 1.3 % (0-4); Hematocrit 40.2 % (37.0-47.0); Hemoglobin 12.4 g/dl (12.0-16.0); Imm Gran Abs Auto 0.08 X10*3/uL (0.00-0.03); Imm Gran Pct Auto 0.6 % (0.0-0.4); Lymphocytes Absolute Auto 2.2 X10*3/uL (1.2-4.9); Mean Corpuscular HGB Conc 30.8 g/dl (31.0-35.0); Mean Corpuscular Hemoglobin 27.6 pg (27.0-33.0); Mean Corpuscular Volume 89.3 fL (80.0-98.0); Mean Platelet Volume 9.1 fL (9.4-12.3); Monocytes Percent Auto 7.7 % (2-11); Neutrophils Absolute Auto 8.9 x10*3/uL (2.0-8.3); Neutrophils Percent Auto 72.1 % (45-73); Platelet Count 287 X10*3/uL (160-400); Red Cell Distribution Width 15.8 % (11.0-16.0); White Blood Count 12.3 X10*3/uL (4.8-10.8)
[2024-06-30] MEDS: Morphine Sulfate 4 MG/ML CARTRIDGE IVPUSH ×2 (07:48→10:12)
--- NOTE | 2024-06-30 08:17 | PC.NURSE ---
Pt ambulatory with a steady gait to radiology for imaging.
[2024-06-30 09:17] LABS: Alanine Aminotransferase 15 U/L (0-31); Albumin Level 3.9 g/dL (3.5-5.0); Alkaline Phosphatase 148 U/L (39-117); Anion Gap 12 (12-20); Aspartate Amino Transferase 15 U/L (5-31); Bilirubin Total 0.3 mg/dL (0.0-1.0); Blood Urea Nitrogen 21 mg/dL (9-16); Calcium 9.3 mg/dL (8.4-10.2); Carbon Dioxide 21 mmol/L (22-29); Chloride 109 mmol/L (96-108); Creatinine Clr Calc Pharmacy 62.4; Estimated Glomerular Filt Rate 42; Glucose Random 140 mg/dL (60-115); Potassium 4.2 mmol/L (3.3-5.1); Sodium 138 mmol/L (135-145); Total Protein 8.6 g/dL (6.5-8.0)
[2024-06-30 10:04] VITALS: BP 112/43; PULSE 59; RESP 18; O2SAT 95
[2024-06-30] MEDS: Lidocaine 4 % Patch ADH..PATCH 1 PATCH TRANSDERMA (10:12)
[2024-06-30 11:18] VITALS: BP 112/43; PULSE 59; RESP 18; TEMP 36.7; O2SAT 95
== END 2024-06-30 11:19 | disposition home or self-care (01) ==
PROVIDERS: Physician Assistant Medical; Emergency Provider Emergency Medicine; PCP Internal Medicine
DX: M51.369 Other intervertebral disc degeneration, lumbar region without mention of lumbar back pain or lower extremity pain (principal); M15.9 Polyosteoarthritis, unspecified; M54.50 Low back pain, unspecified; D64.9 Anemia, unspecified; M25.552 Pain in left hip; M79.605 Pain in left leg; M53.3 Sacrococcygeal disorders, not elsewhere classified; Z79.899 Other long term (current) drug therapy
CPT/HCPCS: 36415; 72100; 72220; 80053; 81001; 85025; 96374; 96376; 99284; J2270

== ENCOUNTER 2024-09-27 08:23 | Observation (INO) | payer MEDICARE, MEDICAID, SELFPAY ==
[2024-09-27] VITALS (14 sets, daily range): BP systolic 139–178; BP diastolic 61–74; PULSE 74–96; RESP 12–22; TEMP 36.9–38.5; O2SAT 80–99; BMI 51.2
--- NOTE | ~2024-09-27 | XR_ITS ---
EXAMINATION: XR CHEST CLINICAL INFORMATION: sob/cp COMPARISON: Chest x-ray 10/02/2022 TECHNIQUE: 2 views of the chest were obtained. FINDINGS: Lungs are well-expanded and clear acute pneumonic process. There is platelike density in the lingula question atelectasis versus prominent pulmonary vascularity. Heart size is normal. There is increased bilateral pulmonary vascularity. There is a cardiac device overlying the left anterior chest wall. Moderate spondylosis seen throughout dorsal spine. XR/XR chest 2V IMPRESSION: Suspected mild pulmonary vascular congestion Electronically signed by: Brody Martines MD 09/27/2024 09:20 [place] [facility] [place]
--- NOTE | 2024-09-27 08:24 | ECG_ITS ---
Test Reason : chest pain Blood Pressure : */* mmHG Vent. Rate : 81 BPM Atrial Rate : 81 BPM P-R Int : 166 ms QRS Dur : 114 ms QT Int : 366 ms P-R-T Axes : 68 -37 69 degrees QTcB Int : 425 ms Normal sinus rhythm Left axis deviation Moderate voltage criteria for LVH, may be normal variant ( R in aVL , [place] product ) Abnormal ECG When compared with ECG of 02-OCT-2022 12:09, Nonspecific T wave abnormality has replaced inverted T waves in Lateral leads Referred By: Generic ED Physician Electronically Signed By: ROSLYN DUTTA
--- NOTE | 2024-09-27 09:00 | PC.NURSE ---
Pt to xray.
--- NOTE | 2024-09-27 09:02 | ED_ITS ---
HPI - Chest Pain General Chief Complaint: Chest Pain Stated Complaint: Chest pain, SOB Time Seen by Provider: 09/27/24 09:02 Source: patient Mode of arrival: ambulatory Limitations: no limitations History of Present Illness ED Provider: Vivien Payne PA-C HPI narrative: 59 y/o female presents to the emergency department with a chief complaint of cough, shortness of breath, or chest pain. Patient states that the shortness of breath began yesterday and has been getting progressively worse without relief from her albuterol inhaler which she takes as needed for asthma. The patient also notes sharp, non-radiating chest pain that is worse when she coughs and has not been relieved by anything. The patient also notes she has had a persistent cough since yesterday which she states further exacerbates her chest pain and shortness of breath. The patient denies fever, but endorses chills since yesterday, particularly this morning. The patient also has a history of atrial fibrillation for which she has a loop monitor placed. She notes she was taking an anti-coagulation medication but that is currently being held due to the loop monitor placement and previous anemia. The patient also endorses a headache which she states has been going on since her other symptoms began, particularly the cough. Related Data Home Medications ?Medication ?Instructions ?Recorded ?Confirmed acetaminophen 325 mg capsule 650 mg PO Q6H PRN 08/25/22 (Tylenol) albuterol sulfate 2.5 mg/0.5 mL 5 mg inhalation Q6H 08/25/22 solution for nebulization albuterol sulfate 90 mcg/actuation 2 puff inhalation Q6H PRN 08/25/22 aerosol inhaler atorvastatin 40 mg tablet 40 mg PO QPM 08/25/22 lamotrigine 100 mg tablet 300 mg PO BID 08/25/22 (Lamictal) levetiracetam 500 mg tablet 500 mg PO BID 08/25/22 (Keppra) topiramate 50 mg tablet (Topamax) 150 mg PO BID 08/25/22 ferrous sulfate 325 mg (65 mg 325 mg PO DAILY 10/02/22 iron) tablet carvedilol 25 mg tablet 25 mg PO BID 10/23/22 clonazepam 1 mg tablet 0.5 mg PO DAILY 03/12/23 ketorolac 0.5 % eye drops drp 09/27/24 prednisolone acetate 1 % eye drp ophthalmic (eye) 09/27/24 drops,suspension Previous Rx's ?Medication ?Instructions ?Recorded cholecalciferol (vitamin D3) 50 50 mcg PO DAILY #60 caps 10/06/22 mcg (2,000 unit) capsule Allergies Allergy/AdvReac Type Severity Reaction Status Date / Time sulfamethoxazole Allergy Severe HIVES Verified 09/27/24 08:36 [From BACTRIM] trimethoprim [From BACTRIM] Allergy Severe HIVES Verified 09/27/24 08:36 From Pneumovax 23 Allergy Unknown SWELLING Uncoded 06/07/20 18:02 TO INJECTION SITE Review of Systems 2 Constitutional: Constitutional: Reports no additional constitutional complaints, Reports chills, Denies fever(s), Reports headache(s) and Denies night sweats Eyes: Eyes: Reports no additional eye complaints, Denies blurry vision, Denies change in vision, Denies diplopia, Denies eye discharge, Denies loss of vision and Denies eye pain ENT: Denies dizziness and Reports headache(s) Cardiovascular: Cardiovascular: Reports no additional cardiovascular complaints, Reports chest pain, Denies lightheadedness, Denies Loss of Consciousness and Reports dyspnea Respiratory: Respiratory: Reports no additional respiratory complaints, Reports cough and Reports dyspnea Gastrointestinal: Gastrointestinal: Reports no additional gastrointestinal complaints, Denies abdominal pain, Denies melena, Denies hematochezia, Denies change in bowel habits and Denies change in stool character Genitourinary: Genitourinary: Denies hematuria, Denies urinary frequency, Denies dysuria, Denies urinary incontinence, Denies urinary hesitancy and Denies urinary urgency Musculoskeletal: Musculoskeletal: Reports no additional musculoskeletal complaints, Denies numbness and Denies tingling Neurologic: Denies dizziness, Reports headache(s), Denies loss of vision, Denies numbness and Denies tingling Psychiatric: Psychiatric: Reports no additional psychiatric complaints Endocrine: Endocrine: Reports no additional endocrine complaints Hematologic/Lymphatic: Hematologic/Lymphatic: Reports no additional hematologic/lymphatic complaints Allergic/Immunologic: Allergic/Immunologic: Reports no additional allergic/immunologic complaints PMFSH Past Medical History Attestation statement: The following information was validated with the patient. Source: old records reviewed and nursing notes reviewed Medical History YUNIER (generalized anxiety disorder) Cardiomyopathy Anxiety Seizure disorder HTN (hypertension), benign Hyperlipidemia Morbid obesity Surgical History Hx of removal of neck cyst Hx of prior ablation treatment Hx laparoscopic cholecystectomy Hx of tubal ligation Hx of kidney transplant Family History Family History Mother Diabetes Heart problem Father Diabetes Heart problem Liver failure Sister No problems noted. Sister Thyroid condition Daughter Lupus Son No problems noted. Social History Social History Alcohol intake: current Alcohol intake frequency: holidays/special occasions only Patient Tobacco Use Status: Never used Tobacco Smoked in Last 30 Days: No Use of substances other than those prescribed or required for medical reasons: No Advance Directives: No Advance Directives Information Provided: Yes Physical Exam 2 Vital Signs: Vital Signs: Last Vital Signs Temp 99.8 F 09/27/24 11:30 Pulse 82 09/27/24 11:45 Resp 21 H 09/27/24 11:45 BP 173/61 H 09/27/24 08:34 Pulse Ox 95 09/27/24 11:30 O2 Del Method Room Air 09/27/24 11:30 BMI result Body Mass Index 51.2 Const: General: cooperative, no acute distress, alert and awake Nutritional Appearance: well nourished Orientation/consciousness: patient oriented x3 Limitations: no limitations HEENT: Head: Yes normal to inspection and Yes atraumatic Ears: hearing grossly normal bilaterally and external ears normal General nose exam: Normal external nose present, no nasal discharge noted and no epistaxis Face and sinus: Yes normal facial exam, No abrasion and No laceration Mouth: Normal oral and palatal mucosa present, no drooling and no muffled voice Eyes: General: appearance normal, both eyes and all related structures P eriorbital: periorbital findings normal Eyelids: Yes eyelids normal C onjunctivae: conjunctivae normal Pupils: Equal, round and reactive pupils present EOM: EOMs intact bilaterally Neck: Neck: Yes normal visual inspection, Yes full ROM and Yes no lymphadenopathy Chest: Chest palpation & inspection: normal inspection of the chest Resp: Effort & Inspection: normal respiratory effort, able to speak in complete sentences and Actively coughing Auscultation: wheezes scattered wheezes and throughout GI: Inspection: Yes normal to inspection Neuro: General: patient oriented x3 and moves all extremities Cranial nerves: Yes Equal, round and reactive pupils present Cognition (Neuro): n ormal cognition Extrem: General: Yes normal to inspection, Yes full ROM and Yes capillary refill normal Psych: Appearance: grossly normal Mental Status: mental status grossly normal Affect: normal affect Attitude: cooperative Thought process: N ormal thought process present Thought content: Normal thought content present Insight: Good insight present (Psych) Medications Administered Discontinued Medications Generic Name Dose Route Start Last Admin Trade Name Mira PRN Reason Stop Dose Admin Albuterol Sulfate 2.5 mg/ 0 mg 09/27/24 09:40 09/27/24 09:46 Albuterol/Ipratropium 3 ml INHALE 09/27/24 09:41 5 dose ONCE ONE Administration Albuterol Sulfate 5 mg/ 0 mg 09/27/24 11:43 09/27/24 11:52 Albuterol/Ipratropium 3 ml INHALE 09/27/24 11:44 7.5 each ONCE ONE Administration Magnesium Sulfate/Dextrose 1 gm in 100 mls @ 100 mls/hr 09/27/24 11:30 09/27/24 12:45 Magnesium Sulfate/D5w IV 09/27/24 12:29 Infused ONCE ONE Infusion Methylprednisolone Sodium Succinate 60 mg 09/27/24 11:30 09/27/24 11:47 Methylprednisolone Sod Succ 125 Mg/2 Ml Vial IVPUSH 09/27/24 11:31 60 mg ONCE ONE Administration Medical Decision Making Medical Decision Making MDM Narrative: Patient is a 59 year old assigned female at with a history of cardiomegaly, asthma, MDD, atrial fib with a loop monitor placed presenting to the emergency department today with a cough, shortness of breath, and chest pain. Patient's physical exam was as noted in the physical exam portion of this note. Patient's blood work was unremarkable. Patient's EKG was unremarkable. Patient's chest x-ray showed mild pulmonary vascular congestion. Patient was influenza positive. I explained my physical exam findings as well as all test results to the patient. I answered all questions asked by the patient. Patient was given multiple breathing treatments, IV solu-medrol, and IV magnesium however, her shortness of breath and wheezing persisted. I spoke to the hospitalist team who agreed to admission. Patient verbalized agreement and understanding with this treatment plan and discharge. Differential Diagnosis Differential Diagnoses: The differential diagnosis associated with the presentation includes Asthma exacerbation Influenza Wheezing Shortness of breath Admission/Observation Consideration of admission/observation: Escalation of care including admission/observation considered Patient admitted. Consult Healthcare Provider Management of the patient was discussed with: Hospitalist (agreed to admission as noted in the MDM Rationale portion of this note.) Lab Data [facility] Lab Attestation statement: I reviewed the patient's lab results. My interpretation of these results are in the MDM Rationale portion of this note. 09/27/24 09:20 09/27/24 10:23 Labs: Lab Results 09/27/24 09/27/24 09/27/24 Range/Units 08:49 09:20 10:23 WBC 9.5 (4.8-10.8) X10*3/uL RBC 4.34 (4.20-5.50) X10*6/uL Hgb 12.6 (12.0-16.0) g/dl Hct 39.3 (37.0-47.0) % MCV 90.6 (80.0-98.0) fL MCH 29.0 (27.0-33.0) pg MCHC 32.1 (31.0-35.0) g/dl RDW 14.7 (11.0-16.0) % Plt Count 250 (160-400) X10*3/uL MPV 9.8 (9.4-12.3) fL Immature Gran % (Auto) 1.2 H (0.0-0.4) % Neut % (Auto) 83.4 H (45-73) % Lymph % (Auto) 7.3 L (20-40) % [place] % (Auto) 6.5 (2-11) % Eos % (Auto) 1.1 (0-4) % Baso % (Auto) 0.5 (0-2) % Lymph # (Auto) 0.7 L (1.2-4.9) X10*3/uL [place] # (Auto) 0.6 (0.1-1.2) X10*3/uL Eos # (Auto) 0.1 (0.0-0.4) X10*3/uL Baso # (Auto) 0.1 (0.0-0.2) X10*3/uL Abs Immat Gran (auto) 0.11 H (0.00-0.03) X10*3/uL Absolute Neuts (auto) 7.9 (2.0-8.3) x10*3/uL Absolute Nucleated RBC 0.000 (0.0-0.012) X10*3/uL Nucleated RBC % (auto) 0.0 (0.0-0.2) /100WBC Sodium 135 (135-145) mmol/L Potassium 4.1 (3.3-5.1) mmol/L Chloride 108 (96-108) mmol/L Carbon Dioxide 22 (22-29) mmol/L Anion Gap 9 L (12-20) BUN 15 (9-16) mg/dL Creatinine 1.17 (0.5-1.4) mg/dL Estim Creat Clear Calc 69.2 Estimated GFR 47 Random Glucose 155 H (60-115) mg/dL Calcium 9.0 (8.4-10.2) mg/dL Total Bilirubin 0.3 (0.0-1.0) mg/dL AST 23 (5-31) U/L ALT 12 (0-31) U/L Alkaline Phosphatase 139 H (39-117) U/L Troponin I High Sens < 2.7 (<3.5-17.0) ng/L B-Natriuretic Peptide 19 (<100) pg/mL Total Protein 8.5 H (6.5-8.0) g/dL Albumin 3.7 (3.5-5.0) g/dL Influenza Type A (PCR) POSITIVE A (Negative) Influenza Type B (PCR) NEGATIVE (Negative) RSV RNA Qual (PCR) NEGATIVE (Negative) SARS-CoV-2 RNA (RT-PCR) NEGATIVE (Negative) Independent Interpretation I performed an independent interpretation of an: EKG and Plain X-Ray Interpretation: My interpretation is in agreement with the radiologist's impression of this imaging study. L EXAMINATION: XR CHEST CLINICAL INFORMATION: sob/cp COMPARISON: Chest x-ray 10/02/2022 TECHNIQUE: 2 views of the chest were obtained. FINDINGS: Lungs are well-expanded and clear acute pneumonic process. There is platelike density in the lingula question atelectasis versus prominent pulmonary vascularity. Heart size is normal. There is increased bilateral pulmonary vascularity. There is a cardiac device overlying the left anterior chest wall. Moderate spondylosis seen throughout dorsal spine. XR/XR chest 2V IMPRESSION: Suspected mild pulmonary vascular congestion Electronically signed by: Brody Martines MD 09/27/2024 09:20 AM EST Dictated By: Brody Martines MD Signed By: Electronically signed by Brody Martines MD 09/27/24 0920 Vent. Rate: 081 BPM Atrial Rate: 081 BPM P-R Int: 166 ms QRS Dur: 114 ms QT Int: 366 ms P-R-T Axes: 068 -37 069 degrees QTc Int: 425 ms Normal sinus rhythm Left axis deviation Moderate voltage criteria for LVH, may be normal variant ( R in aVL , [employer] ) Abnormal ECG When compared with ECG of 02-OCT-2022 12:09, Nonspecific T wave abnormality has replaced inverted T waves in Lateral leads DD/ [id number] Radiology Impression Discussion of test interpretation with radiology: I have reviewed the radiologist's reading. Critical Care Time Critical Care Time Critical Care Time: Yes Total Critical Care Time: 47 Attestation: I spent 47 minutes of Critical Care Time with this patient. This does not include time spent on separately reported billable procedures. Discharge Plan Discharge Clinical Impression: Influenza, Asthma exacerbation Patient Disposition: Admitted As Inpatient Print Language: Polish
[2024-09-27 09:23] LABS: MANUAL DIFF FLAG NO
--- NOTE | 2024-09-27 09:24 | PC.NURSE ---
Pt to ED via external triage with c/o SOB/chest tightness for the past few days as well as dry cough. Pt reports hx asthma, is not on any daily medications for it but does have a nebulizer machine for prn use. Pt believes she is having an asthma exacerbation. Denies any fever/chills. Reports the SOB is worse with exertion and laying down. Pt is difficult stick, labs obtained and sent. PIV established.
[2024-09-27 09:26] LABS: Basophils Absolute Auto 0.1 X10*3/uL (0.0-0.2); Basophils Percent Auto 0.5 % (0-2); Eosinophils Absolute Auto 0.1 X10*3/uL (0.0-0.4); Eosinophils Percent Auto 1.1 % (0-4); Hematocrit 39.3 % (37.0-47.0); Hemoglobin 12.6 g/dl (12.0-16.0); Imm Gran Abs Auto 0.11 X10*3/uL (0.00-0.03); Imm Gran Pct Auto 1.2 % (0.0-0.4); Lymphocytes Absolute Auto 0.7 X10*3/uL (1.2-4.9); Lymphocytes Percent Auto 7.3 % (20-40); Mean Corpuscular HGB Conc 32.1 g/dl (31.0-35.0); Mean Corpuscular Volume 90.6 fL (80.0-98.0); Mean Platelet Volume 9.8 fL (9.4-12.3); Monocytes Absolute Auto 0.6 X10*3/uL (0.1-1.2); Monocytes Percent Auto 6.5 % (2-11); Neutrophils Absolute Auto 7.9 x10*3/uL (2.0-8.3); Neutrophils Percent Auto 83.4 % (45-73); Platelet Count 250 X10*3/uL (160-400); Red Blood Count 4.34 X10*6/uL (4.20-5.50); Red Cell Distribution Width 14.7 % (11.0-16.0); White Blood Count 9.5 X10*3/uL (4.8-10.8)
[2024-09-27] MEDS: Albuterol Sulfate 2.5 MG, Albuterol/Iprat 2.5/0.5MG 3 ML 3 ML INHALE (09:46)
[2024-09-27 09:50] LABS: Troponin-I High Sensitivity < 2.7 ng/L (<3.5-17.0)
[2024-09-27 10:46] LABS: Alanine Aminotransferase 12 U/L (0-31); Albumin Level 3.7 g/dL (3.5-5.0); Alkaline Phosphatase 139 U/L (39-117); Anion Gap 9 (12-20); Aspartate Amino Transferase 23 U/L (5-31); Bilirubin Total 0.3 mg/dL (0.0-1.0); Blood Urea Nitrogen 15 mg/dL (9-16); Carbon Dioxide 22 mmol/L (22-29); Chloride 108 mmol/L (96-108); Creatinine Clr Calc Pharmacy 69.2; Estimated Glomerular Filt Rate 47; Glucose Random 155 mg/dL (60-115); Potassium 4.1 mmol/L (3.3-5.1); Sodium 135 mmol/L (135-145); Total Protein 8.5 g/dL (6.5-8.0)
[2024-09-27 10:51] LABS: B Type Natriuretic Peptide 19 pg/mL (<100)
--- NOTE | 2024-09-27 11:34 | PC.NURSE ---
Patient's SARS swab has been pending since 848 this am, called lab to inquire, lab states there was an error but results should be up soon.
[2024-09-27] MEDS: methylPREDNISolone Sod Succ 125 MG/2 ML VIAL 60 MG IVPUSH (11:47)
[2024-09-27] MEDS: Magnesium Sulfate/D5W 1 GM/100 ML PIGGYBACK IV (11:47)
[2024-09-27] MEDS: Albuterol Sulfate 5 MG, Albuterol/Iprat 2.5/0.5MG 3 ML 3 ML INHALE (11:52)
[2024-09-27 12:21] LABS: Influenza A PCR POSITIVE (Negative); Influenza B PCR NEGATIVE (Negative); Resp Syncy Virus RNA Qual PCR NEGATIVE (Negative); SARS COV2 PCR INHOUSE NEGATIVE (Negative)
--- NOTE | 2024-09-27 14:07 | P.HPHOSP_ITS ---
History of Present Illness Date of Service: 09/27/24 Chief Complaint: Dyspnea A 59 years old lady with PMH of asthma, obesity, depression, HLD, HTN among others who presenting to ED with worsening SOB and wheezing. The patient reports 2 days of cough, wheezing, chest tightness and feeling weak. Denies No chest pain, palpitations, nausea, vomiting, diarrhea or urinary symptoms. CXR mild congestion. tested positive for Flu A. treated with nebulizers, steroids with minimal improvement in ED. admitted for observation. Review of Systems 2 Review of Systems: No fever, chills or weakness No chest pain, palpitation reports shortness of breath and coughing No abdominal pain, nausea or vomiting No urinary symptoms No any rash or wounds PMFSH Medical History YUNIER (generalized anxiety disorder) Cardiomyopathy Anxiety Seizure disorder HTN (hypertension), benign Hyperlipidemia Morbid obesity Family History Mother Diabetes Heart problem Father Diabetes Heart problem Liver failure Sister No problems noted. Sister Thyroid condition Daughter Lupus Son No problems noted. Surgical History Hx of removal of neck cyst Hx of prior ablation treatment Hx laparoscopic cholecystectomy Hx of tubal ligation Hx of kidney transplant Social History Alcohol intake: current Alcohol intake frequency: holidays/special occasions only Patient Tobacco Use Status: Never used Tobacco Smoked in Last 30 Days: No Use of substances other than those prescribed or required for medical reasons: No Advance Directives: No Advance Directives Information Provided: Yes Nutrition Risks: No Nutritional Risk Meds Allergies Allergy/AdvReac Type Severity Reaction Status Date / Time sulfamethoxazole Allergy Severe HIVES Verified 09/27/24 08:36 [From BACTRIM] trimethoprim [From BACTRIM] Allergy Severe HIVES Verified 09/27/24 08:36 From Pneumovax 23 Allergy Unknown SWELLING Uncoded 06/07/20 18:02 TO INJECTION SITE Home Medications ?Medication ?Instructions ?Recorded ?Confirmed ?Last Taken ?Type albuterol sulfate 2.5 mg/0.5 mL 5 mg inhalation Q6H PRN Shortness 08/25/22 09/27/24 09/27/24 History solution for nebulization Of Breath Or Wheezing albuterol sulfate 90 mcg/actuation 2 puff inhalation Q6H PRN 08/25/22 09/27/24 09/27/24 History aerosol inhaler Shortness Of Breath Or Wheezing atorvastatin 40 mg tablet 40 mg PO BEDTIME 08/25/22 09/27/24 09/27/24 History lamotrigine 100 mg tablet 300 mg PO BID 08/25/22 09/27/24 09/27/24 History (Lamictal) levetiracetam 500 mg tablet 500 mg PO BID 08/25/22 09/27/24 09/27/24 History (Keppra) topiramate 50 mg tablet (Topamax) 150 mg PO BID 08/25/22 09/27/24 09/27/24 History ferrous sulfate 325 mg (65 mg 325 mg PO DAILY 10/02/22 09/27/24 09/27/24 History iron) tablet carvedilol 25 mg tablet 25 mg PO BID 10/23/22 09/27/24 09/27/24 History acetaminophen 325 mg tablet 650 mg PO Q6H PRN Fever Or Pain 09/27/24 09/27/24 09/27/24 History Physical Exam 2 Vital Signs and Narrative: Vital Signs: Last Vital Signs Temp 99.8 F 09/27/24 11:30 Pulse 82 09/27/24 11:45 Resp 21 H 09/27/24 11:45 BP 173/61 H 09/27/24 08:34 Pulse Ox 95 09/27/24 11:30 O2 Del Method Room Air 09/27/24 11:30 BMI result Body Mass Index 51.2 Const: Other: Constitutional : Awake, interactive, in mild resp distress Neck : Normal inspection, Supple Cardiovascular : RRR, no JVP, no lower extremity edema Respiratory : decreased bilateral air entry, no crackles, expiratory wheezes Gastrointestinal: soft, lax, Normal bowel sounds, Non tender Skin : Warm, Dry Neurological : Alert & oriented x3, No focal deficit Results Labs 09/27/24 09:20 09/27/24 10:23 Labs: Laboratory Results - last 24 hr 09/27/24 09/27/24 09/27/24 08:49 09:20 10:23 MCV 90.6 MCH 29.0 MCHC 32.1 RDW 14.7 Plt Count 250 MPV 9.8 Immature Gran % (Auto) 1.2 H Neut % (Auto) 83.4 H Lymph % (Auto) 7.3 L [place] % (Auto) 6.5 Eos % (Auto) 1.1 Baso % (Auto) 0.5 Lymph # (Auto) 0.7 L [place] # (Auto) 0.6 Eos # (Auto) 0.1 Baso # (Auto) 0.1 Abs Immat Gran (auto) 0.11 H Absolute Neuts (auto) 7.9 Absolute Nucleated RBC 0.000 Nucleated RBC % (auto) 0.0 Anion Gap 9 L Estim Creat Clear Calc 69.2 Estimated GFR 47 Random Glucose 155 H Calcium 9.0 Total Bilirubin 0.3 AST 23 ALT 12 Alkaline Phosphatase 139 H Troponin I High Sens < 2.7 B-Natriuretic Peptide 19 Total Protein 8.5 H Albumin 3.7 Influenza Type A (PCR) POSITIVE A Influenza Type B (PCR) NEGATIVE RSV RNA Qual (PCR) NEGATIVE SARS-CoV-2 RNA (RT-PCR) NEGATIVE Imaging Radiologist's Impressions: Impressions Chest X-Ray 09/27/24 08:38 IMPRESSION: Suspected mild pulmonary vascular congestion Electronically signed by: Brody Martines MD 09/27/2024 09:20 [place] [facility] [place] (1) Asthma exacerbation: Status: Acute (2) Influenza: Status: Acute Plan A 59 years old lady with PMH of asthma, obesity, depression, HLD, HTN among others who presenting to ED with worsening SOB and wheezing. Acute asthma exacerbation 2/2 Flu A infection with hypoxia O2 dropped to 85% on RA Start Tamiflu Steroids IV Nebulizer ATC and PRN wean O2 down as toelrated HLD Statin HTN Carvedilol Mood disorder, Seizure disorder Keppra, Lamotrigine and Topiramate. DVT PPx Lovenox Quality Stroke Does the patient have a stroke diagnosis?: No VTE Prior VTE?: No VTE Risk Level:: Medical - moderate - high VTE Device Contraindication: Treatment Not Indicated VTE Drug Contraindication: N/A - Med Ordered
[2024-09-27] MEDS: guaiFENesin LA 600 MG TAB.ER.12H PO ×2 (14:33→19:41)
[2024-09-27] MEDS: Enoxaparin Sodium 40 MG/0.4 ML SYRINGE SUBCUT (14:33)
[2024-09-27] MEDS: Acetaminophen 325 MG TABLET 650 MG PO ×2 (14:33→23:43)
[2024-09-27] MEDS: Oseltamivir Phosphate 75 MG CAPSULE PO (14:33)
[2024-09-27] MEDS: Benzonatate 100 MG CAPSULE PO ×2 (14:33→23:43)
--- NOTE | 2024-09-27 14:40 | PC.NURSE ---
Admitting provider Dr. Ferreraasmed at bedside speaking with patient, patient's O2 sating 89 - 92% on RA, intermittently desating to 87 - 88% requested to place patient on 2L, patient satting 91 - 95% on 2L
--- NOTE | 2024-09-27 14:45 | PHA.MEDREC ---
Addendum entered by Maynor Mckee [facility] 09/27/24 14:52: Reviewed [facility] Original Note: Pharmacy Consult ? Medication Reconciliation Pharmacy has completed the medication reconciliation. Spoke to patient to confirm med list. Patient was able to confirm all her medications with me. patient states she no longer takes Clonazepam 1 mg, Ketorolac gtts, (haven't started yet. post eye surgery) Prednisone acet eye drops (haven't started yet. post eye surgery). Patient stated she was on Eliquis 5 mg, however stopped taking after her heart procedure. last took about 6 months ago.
[2024-09-27] MEDS: Albuterol Sulfate (0.083%) 2.5 MG/3 ML VIAL.NEB INHALE ×2 (16:05→21:52)
[2024-09-27] MEDS: lamoTRIgine 100 MG TABLET 300 MG PO (19:40)
[2024-09-27] MEDS: levETIRAcetam 500 MG TABLET PO (19:41)
[2024-09-27] MEDS: Topiramate 25 MG TABLET 150 MG PO (19:41)
[2024-09-27] MEDS: carvediloL 25 MG TABLET PO (19:42)
[2024-09-27] MEDS: Atorvastatin Calcium 40 MG TABLET PO (19:42)
[2024-09-27] MEDS: 0.9 % Sodium Chloride Flush 3 ML SYRINGE IVFLUSH (19:44)
[2024-09-28] VITALS (13 sets, daily range): BP systolic 116–172; BP diastolic 56–73; PULSE 56–84; RESP 16–20; TEMP 36.3–38.8; O2SAT 90–98
[2024-09-28] MEDS: Oseltamivir Phosphate 75 MG CAPSULE PO ×2 (03:33→16:04)
[2024-09-28 07:19] LABS: Anion Gap 14 (12-20); Blood Urea Nitrogen 15 mg/dL (9-16); Calcium 8.8 mg/dL (8.4-10.2); Carbon Dioxide 17 mmol/L (22-29); Chloride 109 mmol/L (96-108); Creatinine Clr Calc Pharmacy 71.1; Estimated Glomerular Filt Rate 48; Glucose Random 163 mg/dL (60-115); Potassium 4.7 mmol/L (3.3-5.1); Sodium 135 mmol/L (135-145)
[2024-09-28] MEDS: Albuterol Sulfate (0.083%) 2.5 MG/3 ML VIAL.NEB INHALE ×4 (08:27→19:29)
[2024-09-28] MEDS: methylPREDNISolone Sod Succ 40 MG/ML VIAL IVPUSH ×2 (09:08→20:48)
[2024-09-28] MEDS: 0.9 % Sodium Chloride Flush 3 ML SYRINGE IVFLUSH ×3 (09:08→20:50)
[2024-09-28] MEDS: Cholecalciferol (Vitamin D3) 25 MCG TABLET 50 MCG PO (09:10)
[2024-09-28] MEDS: lamoTRIgine 100 MG TABLET 300 MG PO ×2 (09:10→20:49)
[2024-09-28] MEDS: carvediloL 25 MG TABLET PO (09:10)
[2024-09-28] MEDS: Topiramate 25 MG TABLET 150 MG PO ×2 (09:10→20:48)
[2024-09-28] MEDS: guaiFENesin LA 600 MG TAB.ER.12H PO ×2 (09:11→20:49)
[2024-09-28] MEDS: levETIRAcetam 500 MG TABLET PO ×2 (09:11→20:49)
[2024-09-28] MEDS: Acetaminophen 325 MG TABLET 650 MG PO ×2 (11:13→17:55)
--- NOTE | 2024-09-28 11:50 | P.PNIM_ITS ---
Subjective Subjective Date of Service: 09/28/24 Interval History: Seen and evaluated this morning reporting SOB and wheezig feels dyspnea with minimal exertion no other events Review of Systems Review of Systems: Yes all other systems are reviewed and are negative Physical Exam 2 Vital Signs: Vital Signs: Last Vital Signs Temp 101.9 F H 09/28/24 11:11 Pulse 81 09/28/24 11:35 Resp 20 09/28/24 11:35 BP 135/62 09/28/24 08:00 Pulse Ox 90 L 09/28/24 08:00 O2 Del Method Room Air 09/28/24 08:00 O2 Flow Rate 2 09/27/24 14:44 BMI result Body Mass Index 51.2 Const: Other: Constitutional : Awake, interactive, in mild resp distress Neck : Normal inspection, Supple Cardiovascular : RRR, no JVP, no lower extremity edema Respiratory : decreased bilateral air entry, no crackles, bilateral expiratory wheezes Gastrointestinal: soft, lax, Normal bowel sounds, Non tender Skin : Warm, Dry Neurological : Alert & oriented x3, No focal deficit Objective Data Active Medications Acetaminophen (Acetaminophen 325 Mg Tablet) 650 mg PO Q6H PRN PRN Reason: Pain, Mild 1-3,fever,headache Last Admin: 09/28/24 11:13 Dose: 650 mg Documented By: CECILIA Albuterol Sulfate (Albuterol Sulfate (0.083%) 2.5 Mg/3 Ml Vial.Neb) 2.5 mg INHALE RQ4H WHILE AWAKE [facility] Last Admin: 09/28/24 11:33 Dose: 2.5 mg Documented By: TIKI Albuterol Sulfate (Albuterol Sulfate (0.083%) 2.5 Mg/3 Ml Vial.Neb) 2.5 mg INHALE RQ4H PRN PRN Reason: Shortness of Breath/Wheezing Atorvastatin Calcium (Atorvastatin Calcium 40 Mg Tablet) 40 mg PO BEDTIME [facility] Last Admin: 09/27/24 19:42 Dose: 40 mg Documented By: RY Benzonatate (Benzonatate 100 Mg Capsule) 100 mg PO TID PRN PRN Reason: Cough Last Admin: 09/27/24 23:43 Dose: 100 mg Documented By: RY Calcium Carbonate (Calcium Carbonate 750 Mg Tab.Chew) 750 mg PO Q4H PRN PRN Reason: Heartburn Carvedilol (Carvedilol 25 Mg Tablet) 25 mg PO BID [facility]; Protocol Last Admin: 09/28/24 09:10 Dose: 25 mg Documented By: CECILIA Enoxaparin Sodium (Enoxaparin Sodium 40 Mg/0.4 Ml Syringe) 40 mg SUBCUT Q24H [facility] Last Admin: 09/27/24 14:33 Dose: 40 mg Documented By: MADISON Guaifenesin (Guaifenesin La 600 Mg Tab.Er.12h) 600 mg PO BID [facility] Last Admin: 09/28/24 09:11 Dose: 600 mg Documented By: CECILIA Lamotrigine (Lamotrigine 100 Mg Tablet) 300 mg PO BID [facility] Last Admin: 09/28/24 09:10 Dose: 300 mg Documented By: CECILIA Levetiracetam (Levetiracetam 500 Mg Tablet) 500 mg PO BID [facility] Last Admin: 09/28/24 09:11 Dose: 500 mg Documented By: CECILIA Magnesium Hydroxide (Milk Of Magnesia 30 Ml Oral.Susp) 30 ml PO DAILY PRN PRN Reason: Constipation Melatonin (Melatonin 3 Mg Tablet) 6 mg PO BEDTIME PRN PRN Reason: Insomnia Methylprednisolone Sodium Succinate (Methylprednisolone Sod Succ 40 Mg/Ml Vial) 40 mg IVPUSH Q12H [facility] Last Admin: 09/28/24 09:08 Dose: 40 mg Documented By: CECILIA Ondansetron HCl (Ondansetron Hcl 4 Mg/2 Ml Vial) 4 mg IVPUSH Q8H PRN PRN Reason: Nausea and Vomiting Oseltamivir Phosphate (Oseltamivir Phosphate 75 Mg Capsule) 75 mg PO Q12H [facility] Stop: 10/02/24 02:31 Last Admin: 09/28/24 03:33 Dose: 75 mg Documented By: RY Sodium Chloride (0.9 % Sodium Chloride Flush 3 Ml Syringe) [facility] Last Admin: 09/28/24 09:08 Dose: 3 ml Documented By: CECILIA Topiramate (Topiramate 25 Mg Tablet) 150 mg PO BID [facility] Last Admin: 09/28/24 09:10 Dose: 150 mg Documented By: CECILIA Vitamin D (Cholecalciferol (Vitamin D3) 25 Mcg Tablet) 50 mcg PO DAILY [facility] Last Admin: 09/28/24 09:10 Dose: 50 mcg Documented By: CECILIA Labs 09/27/24 09:20 09/28/24 06:46 Labs: Laboratory Results - last 24 hr 09/27/24 09/28/24 08:49 06:46 Anion Gap 14 Estim Creat Clear Calc 71.1 Estimated GFR 48 Random Glucose 163 H Calcium 8.8 Influenza Type A (PCR) POSITIVE A Influenza Type B (PCR) NEGATIVE RSV RNA Qual (PCR) NEGATIVE SARS-CoV-2 RNA (RT-PCR) NEGATIVE Assessment and Plan (1) Asthma exacerbation: Status: Acute (2) Influenza: Status: Acute Plan A 59 years old lady with PMH of asthma, obesity, depression, HLD, HTN among others who presenting to ED with worsening SOB and wheezing. Acute asthma exacerbation 2/2 Flu A infection with hypoxia feels mildly better, still dyspneic with minimal exertion Continue Tamiflu continue Steroids IV Nebulizer ATC and PRN wean O2 down as toelrated HLD Statin HTN Carvedilol Mood disorder, Seizure disorder Keppra, Lamotrigine and Topiramate. DVT PPx Lovenox Quality Stroke Does the patient have a stroke diagnosis?: No VTE Prior VTE?: No VTE Risk Level:: Medical - moderate - high VTE Device Contraindication: Treatment Not Indicated VTE Drug Contraindication: N/A - Med Ordered
--- NOTE | 2024-09-28 14:29 | MHC.CM.PN ---
pt lives with has as ride home has a bench lay out technician dc plan home
[2024-09-28] MEDS: Enoxaparin Sodium 40 MG/0.4 ML SYRINGE SUBCUT (16:03)
[2024-09-28] MEDS: Atorvastatin Calcium 40 MG TABLET PO (20:49)
[2024-09-29] MEDS: Oseltamivir Phosphate 75 MG CAPSULE PO (01:45)
[2024-09-29] MEDS: Benzonatate 100 MG CAPSULE PO (01:48)
[2024-09-29] MEDS: Melatonin 3 MG TABLET 6 MG PO (01:48)
[2024-09-29 03:18] VITALS: BP 111/53; PULSE 58; RESP 18; TEMP 37; O2SAT 93
[2024-09-29 07:48] VITALS: BP 146/73; PULSE 67; RESP 18; TEMP 37.2; O2SAT 94
[2024-09-29] MEDS: Albuterol Sulfate (0.083%) 2.5 MG/3 ML VIAL.NEB INHALE ×2 (07:56→11:25)
[2024-09-29 07:58] VITALS: PULSE 68; RESP 18; O2SAT 92
[2024-09-29] MEDS: guaiFENesin LA 600 MG TAB.ER.12H PO (08:24)
[2024-09-29] MEDS: lamoTRIgine 100 MG TABLET 300 MG PO (08:24)
[2024-09-29] MEDS: carvediloL 25 MG TABLET PO (08:24)
[2024-09-29] MEDS: Cholecalciferol (Vitamin D3) 25 MCG TABLET 50 MCG PO (08:24)
[2024-09-29] MEDS: Topiramate 25 MG TABLET 150 MG PO (08:24)
[2024-09-29] MEDS: levETIRAcetam 500 MG TABLET PO (08:25)
[2024-09-29] MEDS: methylPREDNISolone Sod Succ 40 MG/ML VIAL IVPUSH (08:25)
[2024-09-29] MEDS: 0.9 % Sodium Chloride Flush 3 ML SYRINGE IVFLUSH (08:25)
--- NOTE | 2024-09-29 11:20 | PM.DS ---
DS: Providers Provider Date of Service: 09/29/24 Date of admission: 09/27/24 13:58 Date of discharge: 09/29/24 Primary care physician: Joselo Gomez III, MD DS: Diagnosis Discharge Diagnosis (1) Asthma exacerbation: Status: Acute (2) Influenza: Status: Acute DS: Summary Hospital Course Hospital Course: Admission note HPI A 59 years old lady with PMH of asthma, obesity, depression, HLD, HTN among others who presenting to ED with worsening SOB and wheezing. The patient reports 2 days of cough, wheezing, chest tightness and feeling weak. Denies No chest pain, palpitations, nausea, vomiting, diarrhea or urinary symptoms. CXR mild congestion. tested positive for Flu A. treated with nebulizers, steroids with minimal improvement in ED. admitted for observation. Hospital course The patient was admitted for treatment of acute asthma exacerbation secondary to Flu A infection with hypoxia treated with Tamiflu PO, Steroids IV along with Nebulizer ATC and PRN and O2 supplement with good response over the course of hospital stay as she was weaned down O2 supply as tolerated to room air and was able to ambulate with no reported shortness of breath or dyspnea. To be discharged home on Tamiflu, Prednisone and cough medicine with a plan to use her nebulizer 3-4 days for now then as needed. Discharge plan Continue Tamiflu Continue Prednisone Cough medicine Stay well hydrated Use home nebulizer 3-4 times for the next 3 days then as needed Time Attestation Discharge Coordination Time (in mins): 27 Quality: Safe Use of Opioids Does Pt have an Active Cancer Diagnosis on the Problem List?: No Quality: Stroke Does the patient have a stroke diagnosis?: No Physical Exam Vital Signs: Vital Signs: Last Vital Signs Temp 99 F 09/29/24 07:48 Pulse 68 09/29/24 07:58 Resp 18 09/29/24 07:58 BP 146/73 H 09/29/24 07:48 Pulse Ox 94 09/29/24 07:48 O2 Del Method Room Air 09/29/24 07:48 O2 Flow Rate 2 09/27/24 14:44 BMI result Body Mass Index 51.2 Const: Other: Constitutional : Awake, interactive, in mild resp distress Neck : Normal inspection, Supple Cardiovascular : RRR, no JVP, no lower extremity edema Respiratory : good bilateral air entry, no crackles, no significant wheezes , on RA. Gastrointestinal: soft, lax, Normal bowel sounds, Non tender Skin : Warm, Dry Neurological : Alert & oriented x3, No focal deficit DS: Data Imaging Chest x-ray: Radiologist's impression: ITS Impressions Chest X-Ray 09/27/24 08:38 IMPRESSION: Suspected mild pulmonary vascular congestion Electronically signed by: Brody Martines MD 09/27/2024 09:20 AM [facility] Discharge Plan Discharge Anticipated Discharge Date/Time: 09/29/24 11:10 Patient Disposition: Home, Self-Care Discharge Diagnosis: Influenza infection Asthma exacerbation Referrals: Joselo Gomez III, MD [Primary Care Provider] - 1 Week Discharge Medications: New oseltamivir [Tamiflu] 75 mg Capsule 75 mg PO Q12H Qty: 6 0RF guaifenesin [Mucinex] 600 mg Tablet Extended Release 12hr 600 mg PO BID Qty: 14 0RF prednisone 20 mg tablet 40 mg PO DAILY Qty: 10 0RF Continued cholecalciferol (vitamin D3) 50 mcg (2,000 unit) capsule 50 mcg PO DAILY Qty: 60 5RF acetaminophen 325 mg Tablet 650 mg PO Q6H PRN (Reason: Fever Or Pain) ferrous sulfate 325 mg (65 mg iron) tablet 325 mg PO DAILY levetiracetam [Keppra] 500 mg tablet 500 mg PO BID lamotrigine [Lamictal] 100 mg tablet 300 mg PO BID topiramate [Topamax] 50 mg tablet 150 mg PO BID atorvastatin 40 mg tablet 40 mg PO BEDTIME albuterol sulfate 90 mcg/actuation HFA aerosol inhaler 2 puff inhalation Q6H PRN (Reason: Shortness Of Breath Or Wheezing) albuterol sulfate 2.5 mg/0.5 mL solution for nebulization 5 mg inhalation Q6H PRN (Reason: Shortness Of Breath Or Wheezing) carvedilol 25 mg tablet 25 mg PO BID Discharge Orders: Discharge Order (Routine); Ordered 09/29/24 Ordered By: Alfonzo Ellis Diet: Advance to usual diet Activity on Discharge: As tolerated Stand Alone Forms: Patient Portal Discharge page, Work/School Release Print Language: Maori Care Plan Goals: Continue Tamiflu Continue Prednisone Cough medicine Stay well hydrated Use home nebulizer 3-4 times for the next 3 days then as needed Health Concerns: Flu Plan of Treatment: Steroids, Tamiflu Assessment: as above
--- NOTE | 2024-09-29 11:25 | MHC.CM.PN ---
LOUIS 09/29/24 Patient is discharged to home with resumption of [employer]AMP [employer]PERATOR services. Patient has arranged for transportation home.
[2024-09-29 11:26] VITALS: PULSE 63; RESP 18; O2SAT 98
[2024-09-29 11:42] VITALS: BP 130/60; PULSE 56; RESP 18; TEMP 36.9; O2SAT 98
== END 2024-09-29 12:05 | disposition home or self-care (01) ==
LOC: HO.ED 12:59 → HO.EDOVER 14:09 → HO.S3 16:21
PROVIDERS: Admitting Provider Student in an Organized Health Care Education/Training Program; Emergency Provider Emergency Medicine; PCP Internal Medicine; Visit Provider Student in an Organized Health Care Education/Training Program
DX: J45.901 Unspecified asthma with (acute) exacerbation (principal); J11.1 Influenza due to unidentified influenza virus with other respiratory manifestations; I10 Essential (primary) hypertension; E78.5 Hyperlipidemia, unspecified; R05.9 Cough, unspecified; F39 Unspecified mood [affective] disorder; G40.909 Epilepsy, unspecified, not intractable, without status epilepticus; Z03.818 Encounter for observation for suspected exposure to other biological agents ruled out; Z79.899 Other long term (current) drug therapy
CPT/HCPCS: 0241U; 36415; 71046; 80048; 80053; 83880; 84484; 85025; 93005; 94640; 96365; 96372; 96375; 96376; 99221; 99285; J1650; J2919; J3475

== ENCOUNTER → 2024-09-27 08:24 | Outpatient (BNV) | payer MEDICARE, MEDICAID, SELFPAY | PROVIDERS: Admitting Provider Student in an Organized Health Care Education/Training Program; Emergency Provider Emergency Medicine; PCP Internal Medicine; Visit Provider Internal Medicine | DX: R07.9 Chest pain, unspecified (principal); R94.31 Abnormal electrocardiogram [ECG] [EKG] | CPT/HCPCS: 93010 ==

== ENCOUNTER → 2024-09-27 08:38 | Outpatient (BNV) | payer MEDICARE, MEDICAID, SELFPAY | PROVIDERS: Emergency Provider Emergency Medicine; PCP Internal Medicine; Visit Provider Radiology Diagnostic Radiology | DX: R06.02 Shortness of breath (principal); R07.9 Chest pain, unspecified | CPT/HCPCS: 71046 ==

== ENCOUNTER → 2024-09-27 13:58 | Outpatient (BNV) | payer MEDICARE, MEDICAID, SELFPAY | PROVIDERS: Admitting Provider Student in an Organized Health Care Education/Training Program; Emergency Provider Emergency Medicine; PCP Internal Medicine; Visit Provider Student in an Organized Health Care Education/Training Program | DX: J45.901 Unspecified asthma with (acute) exacerbation (principal); J11.1 Influenza due to unidentified influenza virus with other respiratory manifestations | CPT/HCPCS: 99223; 99232; 99238 ==

== ENCOUNTER 2025-04-23 14:02 | Observation (INO) | payer MEDICARE, MEDICAID, SELFPAY ==
--- NOTE | ~2025-04-23 | XR_ITS ---
CLINICAL HISTORY: cough, Shortness of breath 2 view chest x-ray Comparison: CR/SR - XR CHEST 2V - 09/27/24 09:04 EST Findings: The lungs are clear. There is enlargement of the cardiopericardial silhouette. Loop recorder. No acute fracture. IMPRESSION: No consolidation. This document has been electronically signed by: Kimberly Herbert MD on 04/23/2025 15:47:22
[2025-04-23 14:08] VITALS: BP 138/75; PULSE 94; RESP 20; TEMP 36.6; O2SAT 95; BMI 51.1
--- NOTE | 2025-04-23 14:08 | ED_ITS ---
HPI - URI/Sore Throat General Chief Complaint: Upper Respiratory Symptoms Stated Complaint: Covid +, lower O2 88 Time Seen by Provider: 04/23/25 15:12 Source: patient Mode of arrival: ambulatory Limitations: no limitations History of Present Illness ED Provider: AMANDA DOWNEY PA-C HPI Narrative: 59 year old female with pmhx significant for asthma, cardiomyopathy, HTN, HLD, anxiety, seizure disorder presents to the ED today for evaluation of cough, fever (TMAX 102F), lightheadedness, shortness of breath, MAHMOOD x4 days since testing positive via home COVID test. She has been using her inhaler at home without improvement. Reports checking her oxygen saturation this morning and noted it to be 88% after ambulating through her home, prompting her to come to the ED for further evaluation. Denies chest pain, palpitations, LE pain/swelling. Related Data Home Medications ?Medication ?Instructions ?Recorded ?Confirmed albuterol sulfate 2.5 mg/0.5 mL 5 mg inhalation Q6H IN N Shortness 08/25/22 09/27/24 solution for nebulization Of Breath Or Wheezing albuterol sulfate 90 mcg/actuation 2 puff inhalation Q 6H PRN 08/25/22 09/27/24 aerosol inhaler Shortness Of Breath Or Wheez ing atorvastatin 40 mg tablet 40 mg PO BEDTIME 08/25/22 lamotrigine 100 mg tablet 300 mg PO BID 08/25/2209/27 (Lamictal) levetiracetam 500 mg tablet 500 mg PO BID 08/25/2204/14 (Keppra) topiramate 50 mg tablet (Topamax) 150 mg PO BID 09/27/24 ferrous sulfate 325 mg (65 mg 325 mg PO DAILY 10/02/22 09/27/24 iron) tablet carvedilol 25 mg tablet 25 mg PO BID 10/23/22 acetaminophen 325 mg tablet 650 mg PO Q6H PRN Fever Or Pain 09/27/24 09/27/24 Previous Rx's ?Medication ?Instructions ?Recorded cholecalciferol (vitamin D3) 50 50 mcg PO DAILY #60 ca ps 10/06/22 mcg (2,000 unit) capsule guaifenesin 600 mg tablet, 600 mg PO BID #14 tabs 06/15 extended release 12 hr (Mucinex) oseltamivir 75 mg capsule (Tamiflu) 75 mg PO Q12H #6 c aps 09/29/24 prednisone 20 mg tablet 40 mg (2 x 20 mg) PO DAILY # 10 tabs 09/29/24 Allergies Allergy/AdvReac Type Severity Reaction Status Date / Time sulfamethoxazole (From Allergy Severe HIVES Verified 04/23/25 14:10 BACTRIM) trimethoprim (From BACTRIM) Allergy Severe HIVES Verified 04/23/25 14:10 From Pneumovax 23 Allergy Unknown SWELLING Uncoded 04/23/25 14:10 TO INJECTION SITE Review of Systems 2 Review of Systems: Yes all other systems are reviewed and are negative [facility] Past Medical History Attestation statement: The following information was validated with the patient. Source: old records reviewed and nursing notes reviewed Medical History YUNIER (generalized anxiety disorder) Cardiomyopathy Anxiety Seizure disorder HTN (hypertension), benign Hyperlipidemia Morbid obesity Surgical History Hx of removal of neck cyst Hx of prior ablation treatment Hx laparoscopic cholecystectomy Hx of tubal ligation Hx of kidney transplant Family History Family History Mother Diabetes Heart problem Father Diabetes Heart problem Liver failure Sister No problems noted. Sister Thyroid condition Daughter Lupus Son No problems noted. Social History Social History Alcohol intake: current Alcohol intake frequency: holidays/special occasions only Patient Tobacco Use Status: Never used Tobacco Advance Directives: No Advance Directives Information Provided: No Do you have a plan to hurt others: No Plan service: No Physical Exam 2 Vital Signs: Vital Signs: Last Vital Signs Temp 98 F 04/23/25 14:08 Pulse 93 04/23/25 15:41 Resp 24 H 04/23/25 15:41 BP 138/75 04/23/25 14:08 Pulse Ox 99 04/23/25 16:10 O2 Del Method Room Air 04/23/25 16:10 BMI result Body Mass Index 51.1 vital signs stable General: ill appearing however in NAD Skin: Warm, dry, intact. No rashes or lesions. Head: Normocephalic, atraumatic. EENT: Hearing is intact b/l. Conjunctiva clear. PERRLA. EOM intact. Moist mucous membranes.? Neck: Supple without LAD Cardiac: Chest wall symmetric. RRR Lungs: Congested cough. Lungs with expiratory rhonchi and expiratory/inspiratory wheezes throughout. Abdomen: Soft, non-tender, non-distended. No rebound tenderness or guarding. Positive BS x4. Back: No midline spinous or paraspinal tenderness. No step off deformity. Ext: Upper and lower extremities atraumatic, without tenderness, deformity, swelling or erythema. no pitting edema. no calf tenderness. Neuro: AOx3. Normal speech. Ambulating with steady gait Course Course Course Narrative: This is an RME performed by Juliet Conde, [employer]: Additional HPI, ROS, PE not included below will be deferred to primary provider. Patient is a 59-year-old female history of asthma who presents emergency department for evaluation, reports she is COVID positive 4 days ago; cough, fever, dizziness, lightheadedness, MAHMOOD has had low room air O2 saturation of 88%, with ambulation at home, orthopnea. Plan: CXR, labs, ECG Reevaluation(s) Reevaluation #1: 1658 -- CBC without leukocytosis or left shift. No anemia. H&H stable. Chemistry without acute electrolyte abnormality requiring intervention. No BETHANIE. Random glucose 164. Liver function at baseline. Troponin WNL at 5.5. BNP undetectable.she is covid positive. Chest x-ray without infiltrate or consolidation to suggest pneumonia. EKG showing normal sinus rhythm, rate of 95 beats per minute, QT 350, QTC 439, no acute ischemic changes or ST elevations. > she has with albuterol and Solu-Medrol. Will trial ambulatory O2. 1730 -- on ambulatory O2 trial, patient under to drop down to 93%, visibly short of breath and tachypneic to 24. > discussed case with hospitalist herbie velazco who will admit patient to observation for asthma exacerbation in the setting of covid. patient agreeable. Medications Administered Discontinued Medications Generic Name Dose Route Start Last Admin Trade Name Freq PRN Reason Stop Dose Admin Albuterol Sulfate 2.5 mg/ 0 mg 04/23/25 15:38 04/23/25 15:40 Albuterol/Ipratropium 3 ml INHALE 04/23/25 15:39 1 dose ONCE ONE Administration Methylprednisolone Sodium Succinate 125 mg 04/23/25 15:26 04/23/25 16:08 Methylprednisolone Sod Succ 125 Mg/2 Ml Vial IVPUSH 04/23/25 15:27 125 mg ONCE ONE Administration Medical Decision Making Medical Decision Making [facility] Narrative: 59 year old female with pmhx significant for asthma, cardiomyopathy, HTN, HLD, anxiety, seizure disorder presents to the ED today for evaluation of cough, fever (TMAX 102F), lightheadedness, shortness of breath, MAHMOOD x4 days since testing positive via home COVID test. Satting 95% on room air on arrival. Afebrile. She is ill-appearing however in no acute distress. Lungs with expiratory rhonchi and inspiratory/expiratory wheezes throughout. No crackles. No pitting edema. Congested cough noted. Differential diagnosis includes anemia, electrolyte abnormality, viral syndrome, bronchitis, pneumonia, CHF, PE, asthma exacerbation Plan for labs, viral swabs, EKG, chest x-ray, ambulatory O2 Differential Diagnosis Differential Diagnoses: The differential diagnosis associated with the presentation includes As above Admission/Observation Consideration of admission/observation: Escalation of care including admission/observation considered patient to be admitted to observation for asthma exacerbation in the setting of covid. Consult Healthcare Provider Management of the patient was discussed with: Hospitalist (juan a stoner) Lab Data [facility] Lab Attestation statement: I reviewed the patient's lab results. as above. 04/23/25 14:27 04/23/25 14:27 Labs: Lab Results 04/23/25 04/23/25 Range/Units 14:27 15:24 WBC 6.6 (4.8-10.8) X10*3/uL RBC 4.48 (4.20-5.50) X10*6/uL Hgb 13.0 (12.0-16.0) g/dl Hct 39.1 (37.0-47.0) % MCV 87.3 (80.0-98.0) fL MCH 29.0 (27.0-33.0) pg MCHC 33.2 (31.0-35.0) g/dl RDW 13.4 (11.0-16.0) % Plt Count 204 (160-400) X10*3/uL MPV 8.8 L (9.4-12.3) fL Immature Gran % (Auto) 0.5 H (0.0-0.4) % Neut % (Auto) 65.5 (45-73) % Lymph % (Auto) 18.3 L (20-40) % [place] % (Auto) 13.7 H (2-11) % Eos % (Auto) 1.5 (0-4) % Baso % (Auto) 0.5 (0-2) % Lymph # (Auto) 1.2 (1.2-4.9) X10*3/uL [place] # (Auto) 0.9 (0.1-1.2) X10*3/uL Eos # (Auto) 0.1 (0.0-0.4) X10*3/uL Baso # (Auto) 0.0 (0.0-0.2) X10*3/uL Abs Immat Gran (auto) 0.03 (0.00-0.03) X10*3/uL Absolute Neuts (auto) 4.3 (2.0-8.3) x10*3/uL Absolute Nucleated RBC 0.000 (0.0-0.012) X10*3/uL Nucleated RBC % (auto) 0.0 (0.0-0.2) /100WBC PT 12.3 (10.9-12.4) SEC INR 1.1 (0.9-1.1) Sodium 135 (135-145) mmol/L Potassium 3.6 D (3.3-5.1) mmol/L Chloride 104 (96-108) mmol/L Carbon Dioxide 21 L (22-29) mmol/L Anion Gap 14 (12-20) BUN 14 (9-16) mg/dL Creatinine 1.11 (0.5-1.4) mg/dL Estim Creat Clear Calc 72.9 Estimated GFR 50 Random Glucose 164 H (60-115) mg/dL Calcium 9.0 (8.4-10.2) mg/dL Magnesium 1.9 (1.6-2.6) mg/dL Total Bilirubin 0.3 (0.0-1.0) mg/dL AST 24 (5-31) U/L ALT 12 (0-31) U/L Alkaline Phosphatase 125 H (39-117) U/L Troponin I High Sens 5.5 D (<3.5-17.0) ng/L B-Natriuretic Peptide < 10 (<100) pg/mL Total Protein 8.8 H (6.5-8.0) g/dL Albumin 3.9 (3.5-5.0) g/dL Influenza Type A (PCR) NEGATIVE (Negative) Influenza Type B (PCR) NEGATIVE (Negative) RSV RNA Qual (PCR) NEGATIVE (Negative) SARS-CoV-2 RNA (RT-PCR) POSITIVE A (Negative) Independent Interpretation I performed an independent interpretation of an: EKG and Plain X-Ray Interpretation: cxr without infiltrate or consolidation ekg showing NSR with rate of 95 bpm, no acute ischemic changes or st elevations Radiology Impression Discussion of test interpretation with radiology: I have reviewed the radiologist's reading. Radiologist Impression: Date of Service: 04/23/25 Procedure(s): XR chest 2V Accession Number(s): [id number] cc: Vero Conde CNP; Joselo Gomez III, MD~ CLINICAL HISTORY: cough, Shortness of breath 2 view chest x-ray Comparison: CR/SR - XR CHEST 2V - 09/27/24 09:04 EST Findings: The lungs are clear. There is enlargement of the cardiopericardial silhouette. Loop recorder. No acute fracture. IMPRESSION: No consolidation. This document has been electronically signed by: Kimberly Herbert MD on 04/23/2025 15:47:22 Independent Historian Clinical information obtained from an independent historian. History obtained from or confirmed by: Spouse External Record Review External record reviewed: Inpatient record Prescription Management I considered prescription management with: Other (albuterol, steroids) Chronic Conditions Patient?s care impacted by: Other (asthma) Social Determinants Patient?s care significantly limited by Social Determinants of Health including: Other Social Determinant of Health Critical Care Time Critical Care Time Critical Care Time: Yes Total Critical Care Time: 34 Attestation: Critical care time in the amount of 34 minutes has been provided to the patient in terms of direct patient care, frequent reevaluation, consultation with hospitalist, review and interpretation of medical data and results, and management of potentially life-threatening conditions. This is all outside of any medical procedures. Discharge Plan Discharge Clinical Impression: COVID-19, Asthma exacerbation Patient Disposition: Admitted As Inpatient
--- NOTE | 2025-04-23 14:10 | ECG_ITS ---
Test Reason : DIZZINESS/SOB Blood Pressure : */* mmHG Vent. Rate : 95 BPM Atrial Rate : 95 BPM P-R Int : 166 ms QRS Dur : 112 ms QT Int : 350 ms P-R-T Axes : 66 -49 72 degrees QTcB Int : 439 ms Normal sinus rhythm Left anterior fascicular block Moderate voltage criteria for LVH, may be normal variant ( R in aVL , Brian product ) Cannot rule out Anterior infarct , age undetermined Abnormal ECG When compared with ECG of 27-Sep-2024 08:31, No significant change was found Referred By: Vero Conde Electronically Signed By: ROSLYN DUTTA
[2025-04-23 14:34] LABS: MANUAL DIFF FLAG NO
[2025-04-23 14:36] LABS: Hematocrit 39.1 % (37.0-47.0); Hemoglobin 13.0 g/dl (12.0-16.0); Imm Gran Abs Auto 0.03 X10*3/uL (0.00-0.03); Imm Gran Pct Auto 0.5 % (0.0-0.4); Lymphocytes Absolute Auto 1.2 X10*3/uL (1.2-4.9); Mean Corpuscular HGB Conc 33.2 g/dl (31.0-35.0); Mean Corpuscular Hemoglobin 29.0 pg (27.0-33.0); Mean Corpuscular Volume 87.3 fL (80.0-98.0); NRBC Abs Auto 0.000 X10*3/uL (0.0-0.012); NRBC Pct Auto 0.0 /100WBC (0.0-0.2); Platelet Count 204 X10*3/uL (160-400); Red Blood Count 4.48 X10*6/uL (4.20-5.50); White Blood Count 6.6 X10*3/uL (4.8-10.8)
[2025-04-23 14:44] LABS: INTERNATIONAL NORM RATIO 1.1 (0.9-1.1); Prothrombin Time 12.3 SEC (10.9-12.4)
[2025-04-23 14:49] LABS: Alanine Aminotransferase 12 U/L (0-31); Albumin Level 3.9 g/dL (3.5-5.0); Alkaline Phosphatase 125 U/L (39-117); Anion Gap 14 (12-20); Aspartate Amino Transferase 24 U/L (5-31); Blood Urea Nitrogen 14 mg/dL (9-16); Calcium 9.0 mg/dL (8.4-10.2); Carbon Dioxide 21 mmol/L (22-29); Chloride 104 mmol/L (96-108); Creatinine Clr Calc Pharmacy 72.9; Estimated Glomerular Filt Rate 50; Magnesium 1.9 mg/dL (1.6-2.6); Potassium 3.6 mmol/L (3.3-5.1); Sodium 135 mmol/L (135-145); Total Protein 8.8 g/dL (6.5-8.0)
[2025-04-23 14:55] LABS: B Type Natriuretic Peptide < 10 pg/mL (<100)
[2025-04-23 14:57] LABS: Troponin-I High Sensitivity 5.5 ng/L (<3.5-17.0)
--- OUTSIDE RECORDS SUMMARY | 2025-04-23 15:10 | XMS_ITS | Encounter Summary ---
Author Organization [facility] Address [address] [facility] [address] [place] [address] Phone Care Team Providers Care Sheet Metal Operator Name Role Phone Joselo Gomez MD Primary Care Provider [phone] Encounter Details Date Type Department Care Team (Late st Contact Info) Description 03/18/2022 Documentation Only [facility] [address] [place] [address] Javier Tillman MD [address] [place] [address] [place] [phone] Social History Tobacco Use Types Packs/Day Years Used Date Smoking Tobacco: Never Smokeless Tobacco: Never Comments Unknown Sex and Gender Information Value Date Recorded Sex Assigned at Not on file Legal Sex Female 4:36 PM EST Gender Identity Not on file Sexual Orientation Not on file documented as of this encounter Plan of Treatment Upcoming Encounters Date Type Department Care Team (Late st Contact Info) Description 04/26/2025 4:10 PM EDT Office Visit [facility] [address] [place] [phone] Javier Tillman MD [address] [place] [address] documented as of this encounter Visit Diagnoses Not on filedocumented in this encounter Care Teams Sheet Metal Operator Relationship Specialty Start Date End Date Joselo Gomez MD [address] [place] [address] [phone] PCP - General Internal Medicine 12/01/24 documented as of this encounter
--- OUTSIDE RECORDS SUMMARY | 2025-04-23 15:10 | XMS_ITS | Clinical Summary ---
Author Organization [employer] Address [address] [place] [address] Care Team Providers Care Specialist Icu Name Role Phone Unavailable Primary Care Provider Unavailabl e Social History Tobacco Use Types Packs/Day Years Used Date Smoking Tobacco: Never Assessed Comments Unknown Sex and Gender Information Value Date Recorded Sex Assigned at Female 07/21/2022 10:21 AM EDT Legal Sex Female 10:21 AM EDT Gender Identity Not on file Sexual Orientation Not on file Plan of Treatment Health Maintenance Due Date Last Done Comments CT Colonography 1963 Colonoscopy 1963 Colorectal Cancer Screening 1963 Depression Screening 1963 FIT DNA/Cologuard 1963 FIT 1963 FOBT 1963 Sigmoidoscopy 1963 Disability Screening 1963 Alcohol/Substance Use Screening 1975 Tobacco Screening 1975 Pap Smear 1984 Cervical Cancer Screening 1993 HPV/Cotest 1993 Mammogram 2003 Pneumococcal Vaccine: 50+ Years (2 of 2 - PCV) 2013 10/10/2010 Zoster Vaccines (1 of 2) 2013 COVID-19 Vaccine (3 - 2023-2 5 season) 2024 12/12/2020, 11/14/2020 Influenza Vaccine (#1) 2025 7, 06/02/2016, 08/10/2015 DTaP/Tdap/Td Vaccines (3 - T d or Tdap) 05/23/2027 05/23/2017, 10/10/2010 RSV Patients and Patients Aged 60 years or older (1 - 1-dose 75+ series) 2038 HIB Vaccines Aged Out No longer eligi ble based on patient's age to complete this topic HPV Vaccines Aged Out No longer eligi ble based on patient's age to complete this topic Hepatitis A Vaccines Aged Out No long er eligible based on patient's age to complete this topic Hepatitis B Vaccines Aged Out No long er eligible based on patient's age to complete this topic IPV Vaccines Aged Out No longer eligi ble based on patient's age to complete this topic Meningococcal B Vaccine Aged Out No l onger eligible based on patient's age to complete this topic Meningococcal Vaccine Aged Out No guero carmina eligible based on patient's age to complete this topic RSV under 20 months Aged Out No longe r eligible based on patient's age to complete this topic Rotavirus Vaccines Aged Out No longer eligible based on patient's age to complete this topic
--- OUTSIDE RECORDS SUMMARY | 2025-04-23 15:10 | XMS_ITS | Clinical Summary ---
Author Organization [address] [place] [address] [place] [phone] Phone Care Team Providers Care Gill Box Tender Name Role Phone Joselo Gomez MD Primary Care Provider [phone] Allergies Active Allergy Reactions Criticality Noted Date Comments Iodinated Contrast Media Nausea And Vomiting Other 12/29/2022 pt only has one kidney sts I can't take anything like motrin Pneumococcal 23-Valent Polysaccharide Vaccine Swelling High 06/02/2016 Blisters at site of injection Sulfamethoxazole-Trimeth oprim 09/01/2014 Medications carvediloL (COREG) 25 mg tablet Take 1 tablet (25 mg total) by mouth 2 (two) times a day with meals. Active clonazePAM (KlonoPIN) 1 mg tablet Take 1 tablet (1 mg total) by mouth at bedtime as needed. Active diphenoxylate- atropine (LOMOTIL) 2.5-0.025 mg per tablet Take 1 tablet by mouth. 12/29/19 24 Active FREESTYLE LANCETS MISC 2 (two) times a day. 08/31/20 23 Active blood sugar diagnostic (FreeStyle Lite Strips) test strip 100 each by Other route 1 (one) time each day. 04/21/20 24 Active sertraline (ZOLOFT) 100 mg tablet Take 1 tablet (100 mg total) by mouth. Active soft lens rinse,store solution (Saline Solution) solution Administer 1 applicator into affected nostril(s). 1 Applicator by Nasal route 4 times daily as needed (nose bleed 12/14/19 24 Active tirzepatide (Mounjaro) 2.5 mg/0.5 mL injection Inject 0.5 mL (2.5 mg total) under the skin. Active levETIRAcetam (KEPPRA) 500 mg tablet TAKE 1 TABLET BY MOUTH TWICE A DAY 180 tablet 1 11/24/19 25 Active topiramate (TOPAMAX) 50 mg tablet TAKE 3 TABLETS BY MOUTH 2 TIMES A DAY. 540 tablet 1 12/10/19 25 Active furosemide (LASIX) 80 mg tablet Take 1 tablet (80 mg total) by mouth 1 (one) time each day. Active pregabalin (LYRICA) 50 mg capsule Take 1 capsule (50 mg total) by mouth 3 (three) times a day. Max Daily Amount: 150 mg 90 capsule 1 12/09/19 25 Active ferrous fumarate 324 mg (106 mg iron) tablet Take 1 tablet by mouth 1 (one) time each day. 90 tablet 12/16/19 25 Active cholecalcifero l (VITAMIN D-3) 50 mcg (2,000 unit) tablet Take 1 tablet (2,000 Units total) by mouth 1 (one) time each day. 90 tablet 12/16/19 25 Active albuterol HFA (PROAIR HFA ; PROVENTIL HFA ; VENTOLIN HFA) 90 mcg/actuation inhaler Inhale 2 puffs by mouth every 4 (four) hours if needed for wheezing. 18 each 2 12/30/19 25 Active albuterol 2.5 mg /3 mL (0.083 %) nebulizer solutionIndica tions:Asthma, unspecified asthma severity, unspecified whether complicated, unspecified whether persistent Take 3 mL (2.5 mg total) by nebulization every 4 (four) hours if needed for wheezing or shortness of breath. 75 mL 1 12/30/19 25 Active diclofenac (VOLTAREN) 1 % topical gel Apply 4 g topically 2 (two) times a day. 30 g 1 12/30/19 25 Active pregabalin (LYRICA) 150 mg capsule Take 1 capsule (150 mg total) by mouth 2 (two) times a day. Max Daily Amount: 300 mg 60 each 5 12/30/19 25 025 Active cyclobenzaprin e (FLEXERIL) 10 mg tablet TAKE 1 TABLET BY MOUTH 3 TIMES A DAY IF NEEDED FOR MUSCLE SPASMS. 270 tablet 1 01/17/20 25 Active lamoTRIgine (LaMICtal) 100 mg tablet TAKE 3 TABLETS (300 MG TOTAL) BY MOUTH 2 (TWO) TIMES A DAY 540 tablet 1 03/06/20 25 Active atorvastatin (LIPITOR) 40 mg tablet TAKE 1 TABLET BY MOUTH EVERYDAY AT BEDTIME 90 tablet 1 04/05/20 25 Active atorvastatin (LIPITOR) 40 mg tablet TAKE 1 TABLET BY MOUTH EVERYDAY AT BEDTIME 90 tablet 1 10/10/19 25 025 Discontinued Active Problems Problem Noted Date Diagnosed Date Primary osteoarthritis of both knees 08/12/2024 Anxiety 07/06/2024 Asthma 07/06/2024 Overview (07/06/2024): seasonal Depressed 07/06/2024 Insomnia 07/06/2024 Obesity 07/06/2024 Epistaxis 01/05/2024 MGUS (monoclonal gammopathy of unknown significa nce) 11/10/2023 Hypertension 09/17/2023 Atrial flutter (CMS/HCC V24, CMS/HCC V28) 2021 Cardiomyopathy (CMS/HCC V24, CMS/HCC V28) 2021 SOB (shortness of breath) 03/06/2022 Elevated serum protein level 10/25/2021 Diabetes mellitus, new onset (CMS/HCC V24, CMS/H CC V28) 07/16/2021 Atrial fibrillation (CMS/HCC V24, CMS/HCC V28) 0 05/04/2020 CKD (chronic kidney disease) , stage III (CMS/HCC V24, CMS/HCC V28) 05/04/2020 Pulmonary nodule 05/04/2020 Thyromegaly 05/04/2020 Overview (07/06/2024): FNA 07/2021 BETHESDA SYSTEM CATEGORY: II - BENIGN Pure hypercholesterolemia 03/16/2019 Seasonal allergies 01/18/2019 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 Heartburn 08/25/2016 Encounters Date Type Department Care Team Description 04/11/2025 11:55 AM EDT Ancillary Procedure [facility] - [facility] [address] [place] [address] 04/11/2025 Telephone [facility] - [facility] [address] [facility] [address] [place] [address] Eileen Arrington PA 02/28/2025 4:35 PM EDT Ancillary Procedure [facility] [address] [place] [address] 02/14/2025 11:30 AM EDT Office Visit Bariatric Surgery - [place] [address] [place] [phone] Caroline Dee MD Class 3 severe obesity due to excess calories with serious comorbidity and body mass index (BMI) of 50.0 to 59.9 in adult (CMS/HCC V24, CMS/HCC V28) (Primary Dx) 02/10/2025 2:15 PM EDT Ancillary Procedure [facility] - [facility] [address] [facility] [address] [place] [address] 02/06/2025 Telephone [facility] [address] [facility] [address] [place] [address] Ernesto Jacobson MD from Last 3 Months Immunizations Name Administration Dates Next Due Influenza Quadravalent, MDCK , 0.5ml, with preservative (Flucelvax) 6mo and older 07/14/2017 Influenza trivalent, 0.5mL ( Fluad) 65yo and older 06/02/2016,06/06/2011,09/09/2010 Influenza trivalent, 0.5mL, preservative free (Fluarix; FluLaval; Fluzone) ages 6mo and older (Afluria) 3 years and older 08/10/2015,07/06/2013,06/24/2012 Influenza trivalent, with pr eservative (Fluzone; Afluria) 6mo and older 08/11/2015 Influenza, Unspecified 08/10/2015 Pneumococcal polysaccharide 23 valent (Pneumovax 23) 2yo and older 10/10/2010 Td Tetanus diptheria (Tdvax) 7yo and older 05/23 Tdap Tetanus diptheria acell ular pertussis (Boostrix; Adacel) 7yo and older 05/23/2017,10/10/2010 Surgical History Surgery Date Site/Laterality Comments CHOLECYSTECTOMY PROCEDURE: HISTORICAL CHOLECYSTECTOMY CARPAL TUNNEL RELEASE Bilateral PROCEDURE: HISTORICAL CARPAL TUNNEL REL OTHER SURGICAL HISTORY PROCEDURE: [place] DONOR NEPHRECTOMY OPEN LIVING DONOR TUBAL LIGATION PROCEDURE: HISTORICAL TUBAL LIGATION Medical History Medical History Date Comments Seizure ([facility] V24, [facility]) DX:[facility]izure ([facility] COMMENT: dr marroquin Obesity DX:Obesity Asthma DX:Asthma; COMME NT: seasonal Insomnia DX:Insomnia Anxiety DX:Anxiety; COMM ENT: [facility] in [place] Depressed DX:Depressed; CO MMENT: sees psych in [place] Kidney donor DX:Kidney donor Hypertension Pure hypercholesterolemia Diabetes mellitus ([facility] V24, [facility] V28) GERD (gastroesophageal reflux disease) Family History Medical History Relation Name Comments Coronary artery disease Father Colon cancer Neg Hx Relation Name Status Comments Father Social History Tobacco Use Types Packs/Day Years Used Date Smoking Tobacco: Never Smokeless Tobacco: Never Alcohol Use Standard Drinks/Week Comments Yes 0 (1 standard drink = 0.6 oz pur e alcohol) Housing Instability Answer Date Recorde d Are you worried that in the next 2 months you may not have stable housing? No 12/07/2024 Food Access & Nutrition Answer Date Rec orded Do you have access to a vari ety of food including fruits and vegetables? Yes 12/07/2024 Access to Healthcare Answer Date Record ed Within the last 3 months, ho w many times did you visit the emergency department for your medical care? 2 12/07/2024 Health Literacy Answer Date Recorded How often do you need to hav e someone help you when you read instructions, pamphlets, or other written material from your doctor or pharmacy? Never 12/07/2024 Caregiver: How often do you need to have someone help you when you read instructions, pamphlets, or other written material from your doctor or pharmacy? Not on file 12/07/2024 Financial Risk Answer Date Recorded How hard is it for you to pa y for the very basics like food, housing, medical care, and air conditioning / heating? Not asked 12/07/2024 Transportation Answer Date Recorded Has the lack of transportati on kept you from meetings, work, or from getting things needed for daily living? No Has the lack of transportati on kept you from medical appointments or from getting medications? No 12/07/2024 Social Isolation Answer Date Recorded How often do you feel lonely or isolated from th ose around you? Never 12/07/2024 Food Risk Answer Date Recorded Within the past 12 months we worried whether our food would run out before we got money to buy more. Never true 12/07/2024 Within the past 12 months th e food we bought just didn't last and we didn't have money to get more. Never true 12/07/2024 Dependent Care Answer Date Recorded Do you need help finding or paying for care for your loved ones. For example, child support officer or elderly care for an older adult? No 12/07/2024 Education Answer Date Recorded Do you think completing more education or training, like finishing a GED, going to college, or learning a trade, would be helpful for you? Yes 12/07/2024 Employment and Income Answer Date Recor ded During the last four weeks, have you been actively looking for work? No 12/07/2024 Living Situation Answer Date Recorded What is your living situation? 0 12/07/2024 Comments No Sex and Gender Information Value Date Recorded Sex Assigned at Not on file Legal Sex Female 12:25 PM EST Gender Identity Not on file Sexual Orientation Not on file Obstetrics History Last Filed Vital Signs Vital Sign Reading Time Taken Comments Blood Pressure 132/78 02/14/2025 11:16 AM EDT Pulse 65 02/14/2025 11:16 AM EDT Temperature 36.6 C (97.8 F) 02/14/2025 11:16 AM EDT Respiratory Rate 16 12/29/2024 1:20 PM EDT Oxygen Saturation 96% 12/29/2024 1:20 PM EDT Inhaled Oxygen Concentration - - Weight 135 kg (297 lb) 02/14/2025 11:16 AM EDT Height 162.6 cm (5' 4 ) 02/14/2025 11:16 AM EDT Body Mass Index 50.98 02/14/2025 11:16 AM EDT Plan of Treatment Upcoming Encounters Date Type Department Care Team (Late st Contact Info) Description 04/27/2025 2:10 PM EDT Appointment Radiology Department - [address] [phone] 06/28/2025 10:10 AM EDT Office Visit [facility] - [facility] [address] [facility] [address] [place] [address] Eileen Arrington PA [address] [facility] [address] [place] [address] 07/17/2025 9:45 AM EDT Office Visit Adult Medicine [facility] - [address] [phone] Joselo Gomez MD [address] [place] [phone] Health Maintenance Due Date Last Done Comments Diabetes: Annual Foot Exam 1973 Zoster Vaccines (1 of 2) 1982 Pneumococcal Vaccine: 50+ Years (2 of 2 - PCV) 10/10/2011 10/10/2010 Cervical Cancer Screening: Pap Smear 11/30/2017 11/30/2014, 11/30/2014 Colorectal Cancer Screening: Colonoscopy 08/30/2022 HIV Screening 08/30/2022 Medicare Annual Wellness Visit 08/30/2022 RSV Immunization Adult Patients (1 - Risk 60-74 years 1-dose series) 2023 Diabetes: Blood Sugar Control Test (HGBA1C) 05/10/2024 11/10/2023 COVID-19 Vaccine ( season) 2024 09/12/2021, 12/12/2020, 11/14/2020 Breast Cancer Screening 06/30/2024 06/30/20, 03/18/2022, 06/24/2021, Additional history exists Diabetes: Annual Retina Eye Exam 04/04/2025 04/04/2024 Influenza Vaccine (#1) 2025 , 07/14/2017, 06/02/2016, Additional history exists Diabetes: Annual Urine Albumin-Creatinine Ratio (uACR) 08/23/2025 08/23/2024, 01/27/2024 Social Influencers of Health Screening 12/07/2025 12/07/2024 Diabetes: Annual GFR (Glomerular Filtration Rate) 12/28/2025 12/28/2024, 08/23/2024, 03/08/2024, Additional history exists Hypertension/CHF/CAD Annual BMP Blood Test 12/28/2025 12/28/2024, 08/23/2024, 03/08/2024, Additional history exists Cholesterol Screening (Lipid Panel) 11/10/2028 11/10/2023 DTaP,Tdap,and Td Vaccines (5 - Td or Tdap) 11/04/2034 11/04/2024, 05/23/2017, 05/23/2017, Additional history exists Hepatitis C Screening Completed 05/17/2016 Depression Screening Completed 12/07/2024 HIB Vaccines Aged Out No longer eligi [...] on patient's age to complete this topic MMR Vaccines Aged Out No longer eligi ble based on patient's age to complete this topic Meningococcal ACWY Vaccine Aged Out N o longer eligible based on patient's age to complete this topic Meningococcal B Vaccine Aged Out No l onger eligible based on patient's age to complete this topic RSV Immunization Patients Under 20 months Aged Out No longer eligible based on patient's age to complete this topic Varicella Vaccines Aged Out No longer eligible based on patient's age to complete this topic Medical Devices Implanted Type Area Photo Mask Pattern Generator Device Identifier Shelf Expiration Date Model / Serial / Lot Bsci-Crm [id number] Implanted:02/20 (Quantity not on file) Cardiac Loop Recorder [employer] MGMT [id number] / [id number] / Procedures Procedure Name Priority Date/Time Associated Diagnosis Comments CARDIAC DEVICE CHECK- REMOTE- MURJ Routine 04/11/2025 11:52 AM EDT CARDIAC DEVICE CHECK- REMOTE- MURJ Routine 02/28/2025 4:31 PM EDT CARDIAC DEVICE CHECK- REMOTE- MURJ Routine 02/10/2025 2:13 PM EDT BASIC METABOLIC PANEL Routine 12/28/2024 3:19 PM EDT Lower extremity edema Encounter for long-term (current) use of medications DIABETES EYE EXAM Routine 04/04/2024 URINE ALBUMIN CREATININE RATIO Routine 01/27/2024 HEMOGLOBIN A1C Routine 11/10/2023 LIPID PANEL Routine 11/10/2023 SCREENING MAMMOGRAPHY BI 2-VIEW BREAST INC CAD Routine 06/30/2022 5:25 PM EDT Encounter for screening mammogram for malignant neoplasm of breast HEPATITIS C SCREENING Routine 05/17/2016 HPV Routine 11/30/2014 from Last 3 Months or Most Recently Relevant to Health Maintenance Results * Cardiac device check - Remote- MURJ (04/11/2025 11:52 AM EDT) Only the most recent of3 resultswithin the time period is included. Date Time Interrogation Session [id number] CV DEVICE CHECK Type Interrogation Session Remote Scheduled CV DEVICE CHECK Implantable Pulse Generator Photo Mask Pattern Generator BSX CV DEVICE CHECK Implantable Pulse Generator Type ILR CV DEVICE CHECK Implantable Pulse Generator Model M312 CV DEVICE CHECK Implantable Pulse Generator Serial Number [id number] CV DEVICE CHECK Implantable Pulse Generator Implant Date 20240311 CV DEVICE CHECK Battery Status Beginning of Service CV DEVICE CHECK Atrial Tachy Statistic AT/AF [place] Percent 1.00 CV DEVICE CHECK Date of Service 2025-04-13 CV DEVICE CHECK Anatomical Region Laterality Modality Device Interroga tion 04/03/2025 8:13 AM EDT Impressions 04/11/2025 11:31 AM EDT Bradycardia * Stored EGMs are consistent with or suggestive of bradycardia * Underlying rhythm during bradycardia: _Sinus__ * Total episodes: 1 * 10 seconds duration Normal Remote: With Events * Events or Alerts: 1 * Symptom not rhythm related * This is a normal remote diagnostic device check * Battery data was reviewed * Battery status: IGNACIO, * Presenting rhythm reviewed * Heart Rate Histograms reviewed Additional Notes: Pause attached Narrative Procedure Note Eileen Arrington PA - 04/11/2025 IMPRESSION: Bradycardia * Stored EGMs are consistent with or suggestive of bradycardia * Underlying rhythm during bradycardia: _Sinus__ * Total episodes: 1 * 10 seconds duration Normal Remote: With Events * Events or Alerts: 1 * Symptom not rhythm related * This is a normal remote diagnostic device check * Battery data was reviewed * Battery status: IGNACIO, * Presenting rhythm reviewed * Heart Rate Histograms reviewed Additional Notes: Pause attached Eileen CHEUNG CV IMPLANTABLE CARDIAC DEVICE [place] OCEDURES Final Result * (ABNORMAL) Basic metabolic panel (12/28/2024 3:19 PM EDT) [facility] Sodium 136 133 - 145 mmol/L LAB CHEMISTRY METHOD 12/28/2024 6:[address] [facility] Potassium 4.2 3.5 - 5.5 mmol/L LAB CHEMISTRY METHOD 12/28/2024 6:[address] [facility] Chloride 108 96 - 110 mmol/L LAB CHEMISTRY METHOD 12/28/2024 6:[address] [facility] CO2 24 21 - 32 mmol/L LAB CHEMISTRY METHOD 12/28/2024 6:[address] [facility] Anion Gap 4 3 - 11 LAB CHEMISTRY METHOD 12/28/2024 6:[address] [facility] Glucose 132(H) 70 - 100 mg/dL LAB CHEMISTRY METHOD 12/28/2024 6:[address] [facility] BUN 15 5 - 25 mg/dL LAB CHEMISTRY METHOD 12/28/2024 6:[address] [facility] Creatinine 1.06 0.50 - 1.10 mg/dL LAB CHEMISTRY METHOD 12/28/2024 6:02 PM EDT [facility] eGFR 60 >=60 mL/min/1. 73m2 LAB CHEMISTRY METHOD 12/28/2024 6:02 PM EDT [facility] Comment:Calculation based on the Chronic Kidney Disease Epidemiology Collaboration (CKD-EPI) equation refit without adjustment for race. BUN/Creatinine Ratio 14.2 LAB CHEMISTRY METHOD 12/28/2024 6:02 PM EDT [facility] Calcium 9.0 8.5 - 10.5 mg/dL LAB CHEMISTRY METHOD 12/28/2024 6:02 PM EDT [facility] Blood Venous blood specimen / Unknown Venipuncture / Unknown 12/28/2024 3:19 PM EDT 12/28/2024 3:19 PM EDT Joselo Gomez MD LAB BLOOD ORDERABLES Final Resu lt [facility] [address] [place] [address], * Diabetes Eye Exam (04/04/2024) [facility] Diabetes: Annual Retina Eye Exam abstracted Historical Provider HEALTH MAINTENANCE Final Result * Urine Albumin Creatinine Ratio (01/27/2024) [facility] Urine Albumin Creatinine Ratio abstracted Historical Provider HEALTH MAINTENANCE Final Result * Hemoglobin A1c (11/10/2023) [facility] Hemoglobin A1C 6.2 <=6.5 % Blood Venous blood specimen / Unknown Historical Provider LAB BLOOD ORDERABLES Katelyn l Result * Lipid panel (11/10/2023) [facility] LDL/HDL Ratio 2 0 - 4 Triglycerides 97 0 - 150 mg/dL Cholesterol 124 0 - 200 mg/dL HDL 62 >=40 mg/dL LDL Cholesterol 43 0 - 100 mg/dL Blood Venous blood specimen / Unknown us Historical Provider LAB BLOOD ORDERABLES Katelyn ortiz Result * SCREENING MAMMOGRAPHY BI 2-VIEW BREAST INC CAD (06/30/2022 5:25 PM EDT) Anatomical Region Laterality Modality Radiographic Aniya ging 06/24/2021 5:54 PM EDT Narrative 07/01/2022 3:32 PM EDT This is a summary report. The complete report is available in the patient's medical record. If you cannot access the medical record, please contact the sending organization for a detailed fax or copy. BILATERAL 2D and 3D DIGITAL SCREENING MAMMOGRAM History: Routine screening. No current breast complaints. Comparison: Multiple priors dating back to 07/10/2017 Technique: Bilateral full-field digital 2D and 3D mammography was performed using standard CC and MLO projections, right breast exaggerated cc view CAD was used to evaluate this mammogram. Findings: Density: There are scattered areas of fibroglandular density-B RIGHT: No suspicious masses, groups of microcalcification or areas of architectural distortion identified. Stable typically benign parenchymal asymmetries LEFT: No suspicious masses, groups of microcalcifications or areas of architectural distortion identified. Stable typically benign parenchymal asymmetries IMPRESSION: : 1. No mammographic evidence of malignancy. BI-RADS Category 2 benign findings Recommendation: Routine annual screening mammography is recommended Procedure Note Dwayne Fierro MD - 09/09/2022 This is a summary report. The complete report is available in thepatient's medical record. If you cannot access the medical record, pleasecontact the sending organization for a detailed fax or copy. BILATERAL 2D and 3D DIGITAL SCREENING MAMMOGRAM History: Routine screening. No current breast complaints. Comparison: Multiple priors dating back to 07/10/2017 Technique: Bilateral full-field digital 2D and 3D mammography wasperformed using standard CC and MLO projections, right breast exaggeratedcc view CAD was used to evaluate this mammogram. Findings: Density: There are scattered areas of fibroglandular density-B RIGHT: No suspicious masses, groups of microcalcification or areas ofarchitectural distortion identified. Stable typically benign parenchymalasymmetries LEFT: No suspicious masses, groups of microcalcifications or areas ofarchitectural distortion identified. Stable typically benign parenchymalasymmetries IMPRESSION: : 1. No mammographic evidence of malignancy. BI-RADS Category 2 benign findings Recommendation: Routine annual screening mammography is recommended Thee Ambriz MD IMG XR PROCEDURES Final Result * Hepatitis C Screening (05/17/2016) Hepatitis C Screening abstracted Historical Provider HEALTH MAINTENANCE Final Result * Cervical Cancer Screening: HPV (11/30/2014) Pathologist [facility] Cervical Cancer Screening: HPV Negative abstracted Historical Provider HEALTH MAINTENANCE Final Result from Last 3 Months or Most Recently Relevant to Health Maintenance Insurance * Guarantor: Linda Galeana Account Type Relation to Patient Date of Phone Billing Address Personal/Family Self 1965 [address] [place] [address] MEDICARE MEDICAID - [place] Care Teams Gill Box Tender Relationship Specialty Start Date End Date Joselo Gomez MD [address] [place] [id number] PCP - General Internal Medicine 07/29/24
[2025-04-23 15:26] VITALS: O2SAT 90
[2025-04-23] MEDS: Albuterol Sulfate 2.5 MG, Albuterol/Iprat 2.5/0.5MG 3 ML 3 ML INHALE (15:40)
[2025-04-23 15:41] VITALS: PULSE 93; RESP 24; O2SAT 96
[2025-04-23 16:07] LABS: Resp Syncy Virus RNA Qual PCR NEGATIVE (Negative); SARS COV2 PCR INHOUSE POSITIVE (Negative)
[2025-04-23 16:10] VITALS: PULSE 103; O2SAT 99
--- NOTE | 2025-04-23 16:52 | MHC.EDTECH ---
PATIENT WAS AMBULATED.PATIENTS O2 PRIOR WAS 97 PULSE RATE 105.RESPIRATIONS 18. AFTER AMULATION TRIAL PATIENTS O2 WAS 93 PULSE RATE 120.RESPIRATIONS 22.PATIENT HAD STEADY GATE BUT INDICATED FEELING WEAK.
--- NOTE | 2025-04-23 17:59 | PM.IMHP ---
History of Present Illness Date of Service: 04/23/25 Chief Complaint: fever, sob 59F PMH morbid obesity, anxiety, diet-controlled diabetes, moderate persistent asthma history of AFib status post ablation, hypertension, hyperlipidemia presented with shortness of breath. Patient states for about 2 days she has had fevers, chills, fatigue, myalgias. Reports that her asthma has been acting up feeling short of breath, worse on exertion, unable to catch her breath. In ED was positive for COVID, desaturating to low 90s on ambulation. Review of Systems Review of Systems: Yes all other systems are reviewed and are negative [facility] Medical History YUNIER (generalized anxiety disorder) Cardiomyopathy Anxiety Seizure disorder HTN (hypertension), benign Hyperlipidemia Morbid obesity Family History Mother Diabetes Heart problem Father Diabetes Heart problem Liver failure Sister No problems noted. Sister Thyroid condition Daughter Lupus Son No problems noted. Surgical History Hx of removal of neck cyst Hx of prior ablation treatment Hx laparoscopic cholecystectomy Hx of tubal ligation Hx of kidney transplant Social History Alcohol intake: current Alcohol intake frequency: holidays/special occasions only Patient Tobacco Use Status: Never used Tobacco Advance Directives: No Advance Directives Information Provided: No Do you have a plan to hurt others: No Plan service: No Meds Allergies Allergy/AdvReac Type Severity Reaction Status Date / Time sulfamethoxazole (From Allergy Severe HIVES Verified 04/23/25 14:10 BACTRIM) trimethoprim (From BACTRIM) Allergy Severe HIVES Verified 04/23/25 14:10 From Pneumovax 23 Allergy Unknown SWELLING Uncoded 04/23/25 14:10 TO INJECTION SITE Active Medications: Current Medications Albuterol/Ipratropium (Albuterol/Iprat 2.5/0.5mg 3 Ml Ampul.Neb) 3 ml INHALE RQ4H WHILE AWAKE PRN PRN Reason: sob Enoxaparin Sodium (Enoxaparin Sodium 40 Mg/0.4 Ml Syringe) 40 mg SUBCUT Q24H EUGENIO Methylprednisolone Sodium Succinate (Methylprednisolone Sod Succ 40 Mg/Ml Vial) 40 mg IVPUSH Q12H EUGENIO Home Medications ?Medication ?Instructions ?Recorded ?Confirmed ?Last Taken ?Type albuterol sulfate 2.5 mg/0.5 mL 5 mg inhalation Q6H PRN Shortness 08/25/22 09/27/24 09/27/24 History solution for nebulization Of Breath Or Wheezing albuterol sulfate 90 mcg/actuation 2 puff inhalation Q6H PRN 08/25/22 09/27/24 09/27/24 History aerosol inhaler Shortness Of Breath Or Wheezing atorvastatin 40 mg tablet 40 mg PO BEDTIME 08/25/22 09/27/24 09/27/24 History lamotrigine 100 mg tablet 300 mg PO BID 08/25/22 09/27/24 09/27/24 History (Lamictal) levetiracetam 500 mg tablet 500 mg PO BID 08/25/22 09/27/24 09/27/24 History (Keppra) topiramate 50 mg tablet (Topamax) 150 mg PO BID 08/25/22 09/27/24 09/27/24 History ferrous sulfate 325 mg (65 mg 325 mg PO DAILY 10/02/22 09/27/24 09/27/24 History iron) tablet carvedilol 25 mg tablet 25 mg PO BID 10/23/22 09/27/24 09/27/24 History acetaminophen 325 mg tablet 650 mg PO Q6H PRN Fever Or Pain 09/27/24 09/27/24 09/27/24 History cyclobenzaprine 10 mg tablet 10 mg PO TID PRN muscle spasm 04/23/25 Unknown History diclofenac sodium 1 % topical gel 4 g topical BID 04/23/25 Unknown History furosemide 80 mg tablet 80 mg PO DAILY 04/23/25 Unknown History Physical Exam Vital Signs and Narrative: Vital Signs: Last Vital Signs Temp 98 F 04/23/25 14:08 Pulse 93 04/23/25 15:41 Resp 24 H 04/23/25 15:41 BP 138/75 04/23/25 14:08 Pulse Ox 99 04/23/25 16:10 O2 Del Method Room Air 04/23/25 16:10 BMI result Body Mass Index 51.1 General: AO X 3, mild acute distress Resp: mild wheezes bilateral, mild accessory muscles used CVS: S1,S2,RRR GI: soft, non tender, non distended Neuro: motor grossly intact, alert Psych: appropriate affect, appropriate insight Results Labs 04/23/25 14:27 04/23/25 14:27 Labs: Laboratory Results - last 24 hr 04/23/25 04/23/25 14:27 15:24 MCV 87.3 MCH 29.0 MCHC 33.2 RDW 13.4 Plt Count 204 MPV 8.8 L Immature Gran % (Auto) 0.5 H Neut % (Auto) 65.5 Lymph % (Auto) 18.3 L [place] % (Auto) 13.7 H Eos % (Auto) 1.5 Baso % (Auto) 0.5 Lymph # (Auto) 1.2 [place] # (Auto) 0.9 Eos # (Auto) 0.1 Baso # (Auto) 0.0 Abs Immat Gran (auto) 0.03 Absolute Neuts (auto) 4.3 Absolute Nucleated RBC 0.000 Nucleated RBC % (auto) 0.0 PT 12.3 INR 1.1 Anion Gap 14 Estim Creat Clear Calc 72.9 Estimated GFR 50 Random Glucose 164 H Calcium 9.0 Magnesium 1.9 Total Bilirubin 0.3 AST 24 ALT 12 Alkaline Phosphatase 125 H B-Natriuretic Peptide < 10 Total Protein 8.8 H Albumin 3.9 Influenza Type A (PCR) NEGATIVE Influenza Type B (PCR) NEGATIVE RSV RNA Qual (PCR) NEGATIVE SARS-CoV-2 RNA (RT-PCR) POSITIVE A Assessment and Plan (1) Asthma exacerbation: Status: Acute Plan 59F PMH morbid obesity, anxiety, diet-controlled diabetes, epilepsy, moderate persistent asthma history of AFib status post ablation, hypertension, hyperlipidemia presented with shortness of breath Moderate persistent asthma with acute decompensation due to COVID Not hypoxic, continue steroids, DuoNebs Diet-controlled diabetes Monitor point of care while on steroids Morbid obesity Weight loss recommended Epilepsy Continue Lamictal, Keppra Hyperlipidemia Statin Hypertension Carvedilol AFib status post ablation No longer on anticoagulation DVT prophylaxis with Lovenox Full Code Quality Stroke Does the patient have a stroke diagnosis?: No VTE Prior VTE?: No VTE Risk Level:: Medical - moderate - high VTE Device Contraindication: Treatment Not Indicated VTE Drug Contraindication: N/A - Med Ordered
[2025-04-23 18:33] LABS: VBG HCO3 22 mmol/L (22-26); VBG O2 % Saturation 80.0 %
[2025-04-23 18:33] LABS: Venous Blood Gas Refer to POC result
--- NOTE | 2025-04-23 18:35 | PHA.MEDREC ---
Pharmacy Consult ? Medication Reconciliation Pharmacy has completed the medication reconciliation, spoke to patient to confirm medications.
[2025-04-23 20:43] VITALS: BP 108/54; PULSE 85; RESP 16; TEMP 36.6; O2SAT 94
[2025-04-23 20:48] VITALS: BP 108/54; PULSE 86
[2025-04-24] MEDS: 0.9 % Sodium Chloride Flush 3 ML SYRINGE IVFLUSH ×4 (01:17→20:56)
[2025-04-24 01:18] VITALS: BP 117/75; PULSE 71; RESP 14; TEMP 36.7; O2SAT 94
[2025-04-24 04:59] LABS: Hematocrit 38.0 % (37.0-47.0); Hemoglobin 12.4 g/dl (12.0-16.0); Mean Corpuscular HGB Conc 32.6 g/dl (31.0-35.0); Mean Corpuscular Hemoglobin 29.1 pg (27.0-33.0); Mean Corpuscular Volume 89.2 fL (80.0-98.0); NRBC Abs Auto 0.000 X10*3/uL (0.0-0.012); NRBC Pct Auto 0.0 /100WBC (0.0-0.2); Platelet Count 217 X10*3/uL (160-400); Red Blood Count 4.26 X10*6/uL (4.20-5.50); White Blood Count 5.4 X10*3/uL (4.8-10.8)
[2025-04-24 05:06] LABS: Anion Gap 14 (12-20); Blood Urea Nitrogen 17 mg/dL (9-16); Calcium 9.3 mg/dL (8.4-10.2); Carbon Dioxide 20 mmol/L (22-29); Chloride 107 mmol/L (96-108); Creatinine Clr Calc Pharmacy 81.0; Estimated Glomerular Filt Rate 56; Potassium 4.0 mmol/L (3.3-5.1); Sodium 137 mmol/L (135-145)
[2025-04-24 06:04] VITALS: BP 132/62; PULSE 60; RESP 16; TEMP 36.7; O2SAT 94
[2025-04-24 07:24] LABS: Glucose, Whole Blood 139 mg/dL (60-115)
[2025-04-24 08:56] VITALS: BP 132/62; PULSE 60
--- NOTE | 2025-04-24 09:45 | HO.PM.IMPN ---
Subjective Subjective Date of Service: 04/24/25 Interval History: still sob Physical Exam Exam: Exam: General: AO X 3, no acute distress Resp: CTA bilateral, no accessory muscles used CVS: S1,S2,RRR GI: soft, non tender, non distended Neuro: motor grossly intact, alert Psych: appropriate affect, appropriate insight Vital Signs: Vital Signs: Last Vital Signs Temp 98.0 F 04/24/25 06:04 Pulse 60 04/24/25 08:56 Resp 16 04/24/25 06:04 BP 132/62 04/24/25 08:56 Pulse Ox 94 04/24/25 06:04 O2 Del Method Room Air 04/24/25 06:04 BMI result Body Mass Index 51.1 Objective Data Active Medications Acetaminophen (Acetaminophen 325 Mg Tablet) 650 mg PO Q6H PRN PRN Reason: Pain, Mild 1-3,fever,headache Last Admin: 04/24/25 06:18 Dose: 650 mg Documented By: NETTIE Albuterol/Ipratropium (Albuterol/Iprat 2.5/0.5mg 3 Ml Ampul.Neb) 3 ml INHALE RQ4H WHILE AWAKE PRN PRN Reason: sob Atorvastatin Calcium (Atorvastatin Calcium 40 Mg Tablet) 40 mg PO BEDTIME [facility] [place] Last Admin: 04/23/25 20:49 Dose: 40 mg Documented By: NETTIE Calcium Carbonate (Calcium Carbonate 750 Mg Tab.Chew) 750 mg PO Q4H PRN PRN Reason: Heartburn Carvedilol (Carvedilol 25 Mg Tablet) 25 mg PO BID [facility] [place]; Protocol Last Admin: 04/24/25 08:56 Dose: 25 mg Documented By: SERAFIN Cyclobenzaprine HCl (Cyclobenzaprine Hcl 10 Mg Tablet) 10 mg PO TID PRN PRN Reason: Muscle Spasm Enoxaparin Sodium (Enoxaparin Sodium 40 Mg/0.4 Ml Syringe) 40 mg SUBCUT Q24H [facility] [place] Last Admin: 04/24/25 08:55 Dose: 40 mg Documented By: SERAFIN Lamotrigine (Lamotrigine 100 Mg Tablet) 300 mg PO BID [facility] [place] Last Admin: 04/24/25 08:55 Dose: 300 mg Documented By: SERAFIN Levetiracetam (Levetiracetam 500 Mg Tablet) 500 mg PO BID [facility] [place] Last Admin: 04/24/25 08:56 Dose: 500 mg Documented By: SERAFIN Magnesium Hydroxide (Milk Of Magnesia 30 Ml Oral.Susp) 30 ml PO DAILY PRN PRN Reason: Constipation Melatonin (Melatonin 3 Mg Tablet) 6 mg PO BEDTIME PRN PRN Reason: Insomnia Methylprednisolone Sodium Succinate (Methylprednisolone Sod Succ 40 Mg/Ml Vial) 40 mg IVPUSH Q12H [facility] [place] Last Admin: 04/24/25 06:18 Dose: 40 mg Documented By: MONTEJUAN Sodium Chloride (0.9 % Sodium Chloride Flush 3 Ml Syringe) 3 ml IVFLUSH QSHIFT [facility] [place] Last Admin: 04/24/25 07:34 Dose: 3 ml Documented By: SCIRPOS Topiramate (Topiramate 25 Mg Tablet) 150 mg PO BID [facility] [place] Last Admin: 04/24/25 08:55 Dose: 150 mg Documented By: SERAFIN Vitamin D (Cholecalciferol (Vitamin D3) 25 Mcg Tablet) 50 mcg PO DAILY [facility] [place] Last Admin: 04/24/25 08:56 Dose: 50 mcg Documented By: SERAFIN Labs 04/24/25 04:35 04/24/25 04:35 Labs: Laboratory Results - last 24 hr 04/23/25 04/23/25 04/23/25 14:27 15:24 18:29 MCV 87.3 MCH 29.0 MCHC 33.2 RDW 13.4 Plt Count 204 MPV 8.8 L Immature Gran % (Auto) 0.5 H Neut % (Auto) 65.5 Lymph % (Auto) 18.3 L [place] % (Auto) 13.7 H Eos % (Auto) 1.5 Baso % (Auto) 0.5 Lymph # (Auto) 1.2 [place] # (Auto) 0.9 Eos # (Auto) 0.1 Baso # (Auto) 0.0 Abs Immat Gran (auto) 0.03 Absolute Neuts (auto) 4.3 Absolute Nucleated RBC 0.000 Nucleated RBC % (auto) 0.0 PT 12.3 INR 1.1 VBG pH 7.37 VBG pCO2 39 VBG pO2 54 VBG HCO3 22 VBG O2 Saturation 80.0 VBG Base Excess -1.9 Anion Gap 14 Estim Creat Clear Calc 72.9 Estimated GFR 50 POC Glucose Random Glucose 164 H Calcium 9.0 Magnesium 1.9 Total Bilirubin 0.3 AST 24 ALT 12 Alkaline Phosphatase 125 H B-Natriuretic Peptide < 10 Total Protein 8.8 H Albumin 3.9 Influenza Type A (PCR) NEGATIVE Influenza Type B (PCR) NEGATIVE RSV RNA Qual (PCR) NEGATIVE SARS-CoV-2 RNA (RT-PCR) POSITIVE A 04/24/25 04/24/25 04:35 07:20 MCV 89.2 MCH 29.1 MCHC 32.6 RDW 13.2 Plt Count 217 MPV 8.9 L Immature Gran % (Auto) Neut % (Auto) Lymph % (Auto) [place] % (Auto) Eos % (Auto) Baso % (Auto) Lymph # (Auto) [place] # (Auto) Eos # (Auto) Baso # (Auto) Abs Immat Gran (auto) Absolute Neuts (auto) Absolute Nucleated RBC 0.000 Nucleated RBC % (auto) 0.0 PT INR VBG pH VBG pCO2 VBG pO2 VBG HCO3 VBG O2 Saturation VBG Base Excess Anion Gap 14 Estim Creat Clear Calc 81.0 Estimated GFR 56 POC Glucose 139 H Random Glucose 136 H Calcium 9.3 Magnesium Total Bilirubin AST ALT Alkaline Phosphatase B-Natriuretic Peptide Total Protein Albumin Influenza Type A (PCR) Influenza Type B (PCR) RSV RNA Qual (PCR) SARS-CoV-2 RNA (RT-PCR) Assessment and Plan (1) Asthma exacerbation: Status: Resolved Plan 59F PMH morbid obesity, anxiety, diet-controlled diabetes, epilepsy, moderate persistent asthma history of AFib status post ablation, hypertension, hyperlipidemia presented with shortness of breath Moderate persistent asthma with acute decompensation due to COVID Not hypoxic, continue steroids, DuoNebs Diet-controlled diabetes Monitor point of care while on steroids Morbid obesity Weight loss recommended Epilepsy Continue Lamictal, Keppra Hyperlipidemia Statin Hypertension Carvedilol AFib status post ablation No longer on anticoagulation DVT prophylaxis with Lovenox Full Code reason for continued hospitalization:still sob Quality Stroke Does the patient have a stroke diagnosis?: No VTE Prior VTE?: No VTE Risk Level:: Medical - moderate - high VTE Device Contraindication: Treatment Not Indicated VTE Drug Contraindication: N/A - Med Ordered
--- NOTE | 2025-04-24 11:14 | MHC.CM.PN ---
HERIBERTO 04/24/25, PT W/COVID/ASTHMA EXAC, CM CONTACTED PT VIA CELL PHONE AND PT REPORTS SHE LIVES W/HER AT ADDRESS ON FILE, PT DENIES USE OF DME/SERVICES AND GOAL FOR DC IS HOME. PT VERIFIES PCP IS DR. PRUETT, PT DENIES HAVING A HCP AND MAY WANT TO COMPLETE ONE PRIOR TO DC, CM TO REVISIT.
[2025-04-24 12:00] VITALS: BP 128/60; PULSE 59; RESP 18; TEMP 36.8; O2SAT 94
[2025-04-24 12:12] LABS: Glucose, Whole Blood 215 mg/dL (60-115)
[2025-04-24 15:42] VITALS: BP 134/61; PULSE 62; RESP 20; TEMP 37; O2SAT 96
[2025-04-24 16:32] LABS: Glucose, Whole Blood 175 mg/dL (60-115)
[2025-04-24 19:59] VITALS: BP 129/59; PULSE 63; RESP 17; TEMP 36.8; O2SAT 94
[2025-04-24 21:01] LABS: Glucose, Whole Blood 213 mg/dL (60-115)
[2025-04-25 03:38] VITALS: BP 105/58; PULSE 67; RESP 16; TEMP 37.2; O2SAT 99
[2025-04-25 06:57] VITALS: BP 143/68; PULSE 65; RESP 18; TEMP 36.3; O2SAT 96
[2025-04-25 07:06] LABS: Glucose, Whole Blood 177 mg/dL (60-115)
[2025-04-25] MEDS: 0.9 % Sodium Chloride Flush 3 ML SYRINGE IVFLUSH (08:44)
[2025-04-25 08:45] VITALS: BP 143/68; PULSE 65
--- NOTE | 2025-04-25 10:56 | P.DS_ITS ---
DS: Providers Provider Date of Service: 04/25/25 Date of admission: 04/23/25 17:32 Date of discharge: 04/25/25 Primary care physician: Joselo Gomez III, MD DS: Diagnosis Discharge Diagnosis (1) Asthma exacerbation: Status: Resolved DS: Summary Hospital Course Hospital Course: from initial hpi: 59F PMH morbid obesity, anxiety, diet-controlled diabetes, moderate persistent asthma history of AFib status post ablation, hypertension, hyperlipidemia presented with shortness of breath. Patient states for about 2 days she has had fevers, chills, fatigue, myalgias. Reports that her asthma has been acting up feeling short of breath, worse on exertion, unable to catch her breath. In ED was positive for COVID, desaturating to low 90s on ambulation. hospital course: Patient was admitted for moderate persistent asthma with acute decompensation due to COVID. Was treated with steroids and DuoNebs and symptoms resolved. We will be discharged on 5 more days of prednisone. For diet-controlled diabetes was monitored with point of care and received insulin sliding scale coverage as needed. For morbid obesity weight loss recommended. For epilepsy was continued on Lamictal and Keppra. For hyperlipidemia continued on statin. For hyperte nsion continued on for carvedilol. For history of atrial fibrillation status post ablation patient is no longer on anticoagulation. Time Attestation Discharge Coordination Time (in mins): 34 Quality: Safe Use of Opioids Does Pt have an Active Cancer Diagnosis on the Problem List?: No Quality: Stroke Does the patient have a stroke diagnosis?: No Physical Exam Exam: Exam: General: AO X 3, no acute distress Resp: CTA bilateral, no accessory muscles used CVS: S1,S2,RRR GI: soft, non tender, non distended Neuro: motor grossly intact, alert Psych: appropriate affect, appropriate insight Vital Signs: Vital Signs: Last Vital Signs Temp 97.4 F 04/25/25 06:57 Pulse 65 04/25/25 08:45 Resp 18 04/25/25 06:57 BP 143/68 H 04/25/25 08:45 Pulse Ox 96 04/25/25 06:57 O2 Del Method Nasal Cannula 04/25/25 06:57 O2 Flow Rate 1 04/25/25 06:57 BMI result Body Mass Index 51.1 DS: Data Data Completed and Pending Labs on day of discharge: Laboratory Results - last 24 hr 04/24/25 04/24/25 04/24/25 12:06 16:28 20:50 POC Glucose 215 H 175 H 213 H 04/25/25 06:56 POC Glucose 177 H Discharge Plan Discharge Anticipated Discharge Date/Time: 04/25/25 10:54 Patient Disposition: Home, Self-Care Discharge Diagnosis: covid, asthma Referrals: Joselo Gomez III, MD [Primary Care Provider, Medical] - 1 Week Discharge Medications: New prednisone 20 mg tablet 40 mg PO DAILY Qty: 10 0RF Continued cholecalciferol (vitamin D3) 50 mcg (2,000 unit) capsule 50 mcg PO DAILY Qty: 60 5RF acetaminophen 325 mg Tablet 650 mg PO Q6H PRN (Reason: Fever Or Pain) cyclobenzaprine 10 mg tablet 10 mg PO TID PRN (Reason: muscle spasm) diclofenac sodium 1 % gel 4 g topical BID ferrous sulfate 325 mg (65 mg iron) tablet 325 mg PO DAILY levetiracetam [Keppra] 500 mg tablet 500 mg PO BID lamotrigine [Lamictal] 100 mg tablet 300 mg PO BID topiramate [Topamax] 50 mg tablet 150 mg PO BID atorvastatin 40 mg tablet 40 mg PO BEDTIME albuterol sulfate 90 mcg/actuation HFA aerosol inhaler 2 puff inhalation Q6H PRN (Reason: Shortness Of Breath Or Wheezing) albuterol sulfate 2.5 mg/0.5 mL solution for nebulization 5 mg inhalation Q6H PRN (Reason: Shortness Of Breath Or Wheezing) carvedilol 25 mg tablet 25 mg PO BID Discharge Orders: Discharge Order (Routine); Ordered 04/25/25 Ordered By: Moises Lemus Diet: Advance to usual diet Activity on Discharge: As tolerated Stand Alone Forms: Patient Portal Discharge page, Work/School Release Print Language: [place] Care Plan Goals: recovery Health Concerns: covid, asthma Plan of Treatment: 5 days prednisone Assessment: see above
[2025-04-25 11:02] VITALS: BP 134/63; PULSE 63; RESP 18; TEMP 36.2; O2SAT 100
[2025-04-25 11:12] LABS: Glucose, Whole Blood 238 mg/dL (60-115)
--- NOTE | 2025-04-25 11:47 | MHC.CM.PN ---
Pt. has been medically cleared to [place], she will go home via private transport, plan is self care.
== END 2025-04-25 14:26 | disposition home or self-care (01) ==
LOC: HO.ED 17:33 → HO.EDOVER 17:36 → HO.IMC 04-24 07:16
PROVIDERS: Nurse Practitioner Family; Physician Assistant Medical; Admitting Provider Student in an Organized Health Care Education/Training Program; Emergency Provider Emergency Medicine; PCP Internal Medicine; Visit Provider Internal Medicine
DX: U07.1 COVID-19 (principal); J45.41 Moderate persistent asthma with (acute) exacerbation; R05.9 Cough, unspecified; R50.9 Fever, unspecified; R42 Dizziness and giddiness; R06.02 Shortness of breath; I48.91 Unspecified atrial fibrillation; I10 Essential (primary) hypertension; E78.5 Hyperlipidemia, unspecified; E11.9 Type 2 diabetes mellitus without complications; G40.909 Epilepsy, unspecified, not intractable, without status epilepticus; E66.01 Morbid (severe) obesity due to excess calories; Z68.43 Body mass index [BMI] 50.0-59.9, adult; Z79.899 Other long term (current) drug therapy
CPT/HCPCS: 36415; 71046; 80048; 80053; 82803; 82947; 83735; 83880; 84484; 85025; 85027; 85610; 87637; 93005; 94640; 96374; 96376; 99222; 99285; J1650; J2919

== ENCOUNTER → 2025-04-23 14:10 | Outpatient (BNV) | payer MEDICARE, MEDICAID, SELFPAY | PROVIDERS: Admitting Provider Student in an Organized Health Care Education/Training Program; Emergency Provider Emergency Medicine; PCP Internal Medicine; Visit Provider Internal Medicine | DX: I44.4 Left anterior fascicular block (principal) | CPT/HCPCS: 93010 ==

== ENCOUNTER → 2025-04-23 14:11 | Outpatient (BNV) | payer MEDICARE, MEDICAID, SELFPAY | PROVIDERS: Emergency Provider Emergency Medicine; PCP Internal Medicine; Visit Provider Nuclear Medicine | DX: R06.02 Shortness of breath (principal) | CPT/HCPCS: 71046 ==

== ENCOUNTER → 2025-04-23 17:32 | Outpatient (BNV) | payer MEDICARE, MEDICAID, SELFPAY | PROVIDERS: Admitting Provider Student in an Organized Health Care Education/Training Program; Emergency Provider Emergency Medicine; PCP Internal Medicine; Visit Provider Internal Medicine | DX: J45.901 Unspecified asthma with (acute) exacerbation (principal) | CPT/HCPCS: 99223; 99232 ==